=== PATIENT | male | born 1945 | race Caucasian/White ===

== ENCOUNTER 2018-03-15 14:00 | Outpatient (RCR) | payer BC, MEDICARE, SELFPAY ==
--- NOTE | 2018-03-06 14:00 | IE_ITS ---
Date: March 06, 2018 Referring: Messi Valdes MD M.D. Diagnosis: Bilateral LE lymphedema P.T. Diagnosis: Bilateral LE venous insufficiency with R stage II secondary lymphedema SUBJECTIVE: History of Present Illness: Patient is a 72 year old male who reports about 5 years ago he received a stent to his heart. At that time he noticed bilateral ankle swelling which has gotten worse over time. He states he has tried diuretics, but that has not seemed to help reduce his swelling, particularly in his R leg. He reports he has attempted wearing knee high compression stockings to bilateral LE's, but he finds that the elastic band is too tight at the top below the knee, so he does not wear them. He is referred to physical therapy at this time for lymphedema management and education. 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 He feels this prolonged standing increased the swelling in his legs. He shares that he has also had a history of back problems and he has a R hip and shoulder drop due to decreased leg length on the R LE. The patient states that he has been wearing a R foot shoe insert which has evened his leg length and he feels that the combination of standing for many years, combined with his heart problem, combined with back problem and hip pain, contributed to his R LE being worse than the L in terms of swelling, soreness, and tenderness. 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 Patient Goals are to improve LE swelling and decrease soreness, and tenderness in R leg. Pain Ratin/10 bilateral LE's. Prior Level of Function: Prior to 5 years ago he had no difficulty with his LEs. Current Level of Function: Soreness, tenderness through the R LE, occasional tightness wearing his work boots due to swelling in bilateral feet, and toes. Moderate difficulty with squatting, which he has to perform at his work duties, moderate difficulty getting in and out of a vehicle, or sitting more than 1 hour. Difficulty putting socks on secondary to difficulty reaching his feet, the patient is requesting a sock aid for assistance. Previous Treatment: Has not received lymphedema treatment in the past, is being followed by MD regarding cardiac edema and use of diuretics. Social: Lives with his in a house. 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 States he goes up and down ladders, squatting and moving throughout the day doing his work duties. Comorbidities: R shoulder arthroscopy 2005, inguinal hernia repair on L x3, R rotator cuff repair, cardiac stent placement, R ankle repair. 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 Falls in the last year: __X__ No Reported hospitalizations in the last year - __X__ No Medications: Diazepam, Nitro, Furosemide, Metoprolol, Simvastatin, phenytoin sodium extended, vitamin D, aspirin Quality of Life: _ Good Standardized Measures: LEFS score: 49% OBJECTIVE: Posture: Patient states with relatively equal posture wearing good condition work boots with R foot boot insert creating level shoulders, level hips in standing position. Without boots on, the patient was slightly decreased R shoulder and R hip in standing position due to leg difference. Observation: Patient able to don/doff bilateral socks and shoes independently with difficulty reaching feet for donning socks and doffing. The patient would benefit from a sock aide to assist with dressing. Will provide at next session. Skin Integrity: Bilateral LE's skin tone is normal. No signs of redness or hemosiderin staining, no signs of wounds, cellulitis or infection. Patient appears to have a fungal infection to the R great toe nail. States he has received medication for this in the past, but currently is not taking any. He is advised to contact Dr. Valdes for fungal treatment. Dirt between bilateral feet of toes. The patient instructed cleaning between toes and drying sufficiently, as well as performing bilateral foot inspections. Skin care hand out provided for proper skin care for LE's. Gait: Step through gait pattern without assistive device. Normal stride and dianne. Palpation: R LE 1+ pitting edema noted primarily from below the knee to the dorsum of the foot, worse at the ankle. Slightly tender to palpation throughout R LE from knee to ankle. (+) Stemmer sign R second toe, R foot. L LE trace pitting edema below knee to ankle, slight swelling in dorsum of foot. (-) for Stemmer sign L second toe of foot. Edema: Circumferential Measurements: RIGHT LEFT Mid foot 24.5cm 25cm 10cm 28.5cm 26cm 20cm 35 cm 31cm 30cm 39cm 38cm 40cm 41cm 41cm 50cm 45 cm 45cm 60cm 49cm 49cm LE measurements indicate patient is (+) for lymphedema R LE from below the knee to the dorsum of the foot compared to the L due to greater than 2cm difference R vs L. ROM: Bilateral LE AAROM WNL. Some tightness through bilateral hip flexion due to tightness throughout lumbar spine secondary to degenerative changes. Strength: 5/5 throughout bilateral LEs Neuro: Patient is intact to light touch in proprioception throughout bilateral LEs. Motor control and kinesthetic awareness are intact. The patient does not have any neuropathy or other sensory deficits of the feet. Treatment: Initial evaluation and assessment of his functional abilities. IE: [id number] Patient Education: Patient issued lymphedema educational packet, educated in diagnosis of lymphedema. Discussion regarding venous insufficiency vs lymphedema. At this time, the patient appears to have bilateral LE venous insufficiency combined with stage II secondary R LE lymphedema from the knee to the foot. Anatomy hand out, and diagrams were provided. The patient was educated regarding lymphatic flow and function. Discussed with patient treatment for lymphedema and management of lymphedema including Complete Decongestive Therapy (CDT) consisting of 1: Skin care and hygiene: patient has generally good skin care bilateral LE' s. He would benefit from improved cleansing between the toes and treatment for R great toe fungal infection. He will follow up with MD for prescription for fungal treatment. 2: Manual lymphatic drainage. Patient to have come to next session to assist with learning self MLD techniques for bilateral LE edema and R LE lymphedema. 3: Compression. The patient's current compression garments are too tight and do not fit him appropriately. Will obtain prescription from Dr. Valdes for bilateral close toe, knee high compression garment 20-30mmhg. The patient would like [facility] [place], and follow up with [facility] through his insurance for obtaining compression garments. Will send a letter to Dr. Valdes today to obtain prescription. 4: Exercise and elevation. Patient is quite active through his work duties, not concerned with an exercise program for him at this time due to his life style, will issue LE exercise he can perform in sitting and supine focusing on ROM and strengthening to reduce lymphedema. The patient was instructed in elevating LE 30 mins per day. The patient verbalized understanding. Direct treatment time: 60 mins Total treatment time: 60 mins ASSESSMENT: Patient is a 72-year-old male, referred for PT services with the diagnosis of bilateral LE lymphedema. Patient presents with clinical signs and symptoms consistent with venous insufficiency, combined with R LE stage II secondary lymphedema, as demonstrated by the following impairment level findings: Greater than 2cm circumferential measurements R LE knee to foot vs the L. (+) Pitting edema R LE compared to L. (+) edema in bilateral LE's affecting his ability to put on socks and shoes, affecting how his shoes fit causing them to be tight when legs have increased swelling, affecting his ability to perform work duties such as sitting greater than1 hour, getting in and out of a vehicle , squatting, and bending, and prolonged walking. Patient is assessed as: Low 9716 complexity, based on the following: History: See comorbidities and social history. Examination:Bilateral LE's R greater than L See above for functional limitations and impairments. Presentation: Stable Decision-Making: Disability based on LEFS 49% __X__ Patient requires skilled PT intervention to remediate the above functional limitations to return to: __x__ Return to work demands __x__ Improve Quality of Life G-Codes Patient's primary functional limitation is in the category of: __X__ Other Physical/Occupational Therapy primary functional limitation: [id number] Projected goal: __X__ Other Physical/Occupational Therapy primary functional limitation: [id number] KX modifier to be utilized as justified by above documentation for necessity of continued Physical Therapy intervention to attend to functional deficits which have not been fully remediated as they approach their Medicare cap. GOALS STG: __1__ weeks. 1: Patient will be independent with skin care and hygiene for bilateral LE's. 2: Patient independent with elevation of LEs 30 mins a day. 3: Patient independent with issued HEP for LE's. LTG: __3__ weeks. 1: Patient and independent with self manual lymphatic drainage techniques for lymphedema of LE. 2: Patient obtains knee high compression garments of appropriate size pressure of 20-30mmhg and is able to don/doff independently. 3: Patient independent with lymphedema management. PLAN: Patient to be seen 2 x per week, for 3 weeks, adjusting frequency of visits per patient symptoms and response to treatment. Treatment to include: Manual therapy - [id number]: for manual lymphatic drainage of bilateral LE's R greater than L and instruction in self MLD program. Caregiver training of to assist with MLD program. Therapeutic exercise - [id number] bilateral LE to decrease lymphedema. Self care training for education regarding CDT program and lymphedema management. Thank you for this referral. Please do not hesitate to contact me with any questions or concerns regarding this patient's plan of care. Jyotsna Judge PT, CLT *Dr. Valdes, please sign this evaluation and return to physical therapy if you agree with the above stated plan of care. cc: Messi Valdes MD
--- NOTE | 2018-03-11 15:00 | PTTR_ITS ---
DATE: 03/12/18 late entry for 03/11/18 SUBJECTIVE: Pt comes to appointment today stating he has been busy working at [employer] at the [employer] [facility]. States his was supposed to come with him today to this appointment but when he got home she was not there. States he will be sure she can come to Sunday's appointment so she can learn how to assist him with manual lymphatic drainage. Pt reports he has read over Lymphedema education materials and he has no questions at this time. Reported to patient that we have received prescription from MD for bilateral LE closed toe compression garments 20-30mmhg and that the prescription has been faxed to [facility] in [place] per patient's request. Call was placed to [facility] and they confirmed they received the order and supporting paperwork. [place] to contact patient this week to set up a fitting time and and order for compression garments. Pain number: 0/10 OBJECTIVE: Manual therapy: ([id number]): Performed manual lymphatic drainage treatment on patient in the following sequence: bilateral SCF collectors. bilateral axillary nodes, abdominal breathing, bilateral inguinal nodes, followed by bilateral LE's proximal followed by distal drainage through bilateral groins. Issued patient self MLD handout in the above sequence to review. Will instruct patient and in self MLD techniques at next session. Pt was issued a sock aide to assist with donning socks independently. Pt was able to use sock aide to don socks at end of session. Pt independent with donning bilateral boots and tieing laces. Direct treatment time: 30min Total treatment time: 30min Jyotsna Judge PT, CLT
--- NOTE | 2018-03-15 14:30 | PTTR_ITS ---
DATE: 03/15/18 SUBJECTIVE: Patient enters the clinic today with his to receive instruction in manual lymphatic drainage. Patient reports he followed up with [facility] in [place] and has a fitting appointment to order new compression garments next . The patient states he has reviewed his lymphedema information packet, has no questions at this time. Reports the sock aid lawson issued at last session has improved his ability to put on socks independently. * x Self Care Training - ([id number] x2): Patient and instructed in manual lymphatic drainage techniques in the following sequence: * bilateral SCF collectors, bilateral axillary nodes, abdominal breathing, bilateral inguinal nodes, bilateral LE drainage, proximal first followed by distal followed by dorsum of the foot and ankles, draining into groin. The patient was able to perform upper body sequence independently with instruction with hand placement and pressure. was able to perform lower body, LE sequence with instruction in hand placement and pressure. Patient and to perform MLD at home 1x per day progressing to 2x if needed over the next week. The patient will return to clinic next Sunday for remeasurement of LE's. Direct treatment time: 30 mins Total treatment time: 30 mins A: Patient and with good techniques, cooperative and following with instructions. P: Follow up next week for measuring LE and ordering of compression garments through [facility] in [place], [place]. CF/dl
== END 2018-03-15 23:59 | disposition home or self-care (01) ==
LOC: PT 14:00
PROVIDERS: PCP Family Medicine; Referring Provider Family Medicine; Visit Provider Family Medicine
DX: I89.0 Lymphedema, not elsewhere classified (principal); I87.2 Venous insufficiency (chronic) (peripheral)
CPT/HCPCS: 97140; 97161; 97535

== ENCOUNTER 2018-05-24 07:49 | Emergency (ER) | payer BC, MEDICARE, SELFPAY ==
[2018-05-24] VITALS (29 sets, daily range): BP systolic 132–148; BP diastolic 66–80; PULSE 67–92; RESP 10–24; TEMP 36.7; O2SAT 87–96
--- NOTE | 2018-05-24 08:04 | ED.GENADUL_ITS ---
Discharge Plan Disposition Patient Disposition: [facility] Condition: Stable Discharge Details Chief Complaint: Chest Pain Clinical Impression: Bilateral pulmonary embolism, Hypoxia Primary Care Provider: Messi Valdes ED Provider: Srinivas Mcgarry Home Meds and New Rx's Prescriptions: No Action furosemide 40 mg tablet 40 mg PO DAILY RF: 0 phenytoin sodium extended 100 MG capsule 5 cap PO DAILY Qty: 450 RF: 4 simvastatin 40 MG tablet 40 mg PO DAILY Qty: 90 RF: 4 Metoprolol Succinate 25 MG TAB.ER.24H 25 mg PO DAILY Qty: 90 RF: 4 nitroglycerin 0.4 MG tablet, sublingual 0.4 mg Sublingual As directed MDD 3 tabs PRNQty: 50 RF: 4 aspirin 325 MG tablet 162 mg PO DAILY RF: 0 cholecalciferol (vitamin D3) 1,000 UNITS tablet 1,000 units PO DAILY RF: 0 Medical Decision Making Pt comes in with cough for a few days and for a day has had left sided chest pain especially with coughing. Is noted to be hypoxic to the high 80's on exam. Denies any radiation of pain or pain with exertion and doesn't sound typical of acs but agapito eval with ecg and troponin. Will eval for PE/dissection and PNA with CTA pt has remained stable, lab work unremarkable. HAs bilateral PE's, no saddle embolism or right heart strain per Dr. contreras on ct. No hypotension. No beds here , spoke with Dr. Natarajan from [facility] who accepts in transfer. Differential Diagnosis pe, pna, dissection, acs Imaging Data Radiologic Study: Attestation: I personally reviewed and interpreted this imaging study as follows: Radiologist's impression: bilateral PE Lab Data Lab results reviewed: Yes I reviewed the patient's lab results. ECG Data Attestation: I personally reviewed and interpreted this ECG (s) as follows: Prior ECG tracings: not available for review Interpretation: sinus rhythm, rate of 92, pr 152, no significant st t wave abnormalities HPI General Mode of arrival: ambulatory . Date/Time Provider Initiated Documentation: 05/24/18 07:54 . Limitations to Documentation: no limitations . Information obtained by: patient . History of Present Illness 72 year old M presents to the emergency department with the chief complaint of left sided chest pain , described as moderate, with intensity rated at 5. Quality is described as sharp, and is localized to the chest. Patient reports no radiation. Patient started experiencing this day(s) (1) and it has been constant. No relieving factors improve symptom(s), No exacerbating factors reported . Patient notes cough. Patient did receive the following treatments prior to arrival, none Related Data Home Medications Medication Instructions Recorded Confirmed aspirin 162 mg PO DAILY 10/11/12 05/24/18 cholecalciferol (vitamin D3) 1,000 units PO DAILY 10/11/12 05/24/18 phenytoin sodium extended 5 cap PO DAILY #450 tab-cap 06/08/17 05/24/18 simvastatin 40 mg PO DAILY #90 tab-cap 06/08/17 05/24/18 nitroglycerin 0.4 mg SUBLINGUAL As directed PRN 01/31/18 05/24/18 #50 tab MDD 3 tabs furosemide 40 mg tablet 40 mg PO DAILY tab-cap 04/02/18 05/24/18 Previous Rx's Medication Instructions Recorded phenytoin sodium extended 5 cap PO DAILY #450 tab-cap 06/08/17 simvastatin 40 mg PO DAILY #90 tab-cap 06/08/17 Allergies Allergy/AdvReac Type Severity Reaction Status Date / Time amoxicillin Allergy Unknown Unverified 05/24/18 08:09 Sulfa (Sulfonamide Allergy Unknown Unverified 05/24/18 08:09 Antibiotics) General Stated Complaint: Chest Pain JERRICA: 2 Review of Systems Review of Systems All systems reviewed & are unremarkable except as noted in HPI and below Constitutional Denies chills, Denies fever(s) and Denies weakness Eyes Denies loss of vision ENT Denies change in voice Gastrointestinal Denies abdominal pain, Denies nausea and Denies vomiting Genitourinary Denies dysuria Musculoskeletal Denies joint swelling Integumentary/Breasts Denies rash Neurologic Denies loss of vision and Denies weakness Psychiatric Denies depression Endocrine Denies cold intolerance and Denies heat intolerance [facility] Family History Mother Heart disease Father Personal history of malignant neoplasm Heart disease Sister Heart disease Brother No problems noted. Grandfather No problems noted. Grandfather No problems noted. Grandmother No problems noted. Grandmother No problems noted. Medical History Hyperlipidemia Hypertension Seizures Social History current occupational status: employed current occupation: [employer] frequency: daily duration: 30-45 minutes/day Smoking/Tobacco Use Status: Former Tobacco Use second hand exposure: No Surgical History Arthroscopy, Shoulder (~2005) Repair of inguinal hernia Rotator Cuff Repair Stent placement ankle repair Exam Const General: no acute distress Orientation: alert HENMT Head: normal to inspection Ears: external ears normal General nose exam: external nose normal Mouth: moist mucous membranes Eyes General: appearance normal, both eyes and all related structures Neck Neck: normal visual inspection Resp Effort & Inspection: normal respiratory effort and able to speak in complete sentences Cardio Rate: regular rate Skin General skin exam: no rashes or lesions noted Neuro General: alert and oriented x3 Extrem General: normal to inspection Psych Mental Status: mental status grossly normal Course Vital Signs Temperature 36.7 C 05/24/18 07:58 Pulse 91 H 05/24/18 07:58 Respiratory Rate 24 05/24/18 07:58 Blood Pressure 148/73 H 05/24/18 07:58 Pulse Oximetry 88 L 05/24/18 07:58 Temperature 36.7 C 05/24/18 07:58 Temperature Source Temporal Artery Scan 05/24/18 07:58 Pulse 91 H 05/24/18 07:58 Respiratory Rate 24 05/24/18 07:58 Respiratory Effort 05/24/18 08:02 Blood Pressure 148/73 H 05/24/18 07:58 Blood Pressure Position Supine 05/24/18 07:58 Pulse Oximetry 88 L 05/24/18 07:58 Oxygen Delivery Method Room Air 05/24/18 07:58 Oxygen Flow Rate 0 05/24/18 07:58 Pain Level 9 05/24/18 07:58
[2018-05-24] MEDS: Aspirin 81 MG CHEW 324 MG CH (08:08)
[2018-05-24 08:17] LABS: Abs Immature Grans 0.03 k/cumm (0.0-0.09); Absolute Basophil Count 0.05 k/cumm (0.0-0.2); Absolute Eosinophil Count 0.23 k/cumm (0.0-0.7); Absolute Lymphocyte Count 1.25 k/cumm (1.2-3.4); Absolute Neutrophil Count 6.77 k/cumm (1.2-6.7); Basophils % 0.6; Eosinophils % 2.5; HGB 13.8 g/dL (13.5-17.5); Immature Grans % 0.3; Lymphocytes % 13.8; Mean Corp. HGB Concentration 33.7 g/dL (32.0-36.0); Mean Corpuscular Hemoglobin 30.3 pg (27.0-33.0); Mean Corpuscular Volume 89.9 fL (80-95); Mean Platelet Volume 10.2 fL (8.0-11.0); Monocytes % 7.8; Platelet Count 219 x1000/uL (130-400); RBC 4.56 m/cumm (4.50-6.00); RBC Distribution Width 13.6 % (11.8-14.1); White Blood Cell Count 9.03 k/cumm (4.4-10.8)
[2018-05-24 08:30] LABS: INR 1.1 (1.0-3.5); PTT Activated 22.2 sec (21.0-31.4); Prothrombin Time 10.4 sec (9.3-10.8)
--- NOTE | 2018-05-24 08:30 | DI.CT_ITS ---
SYMPTOMS/DIAGNOSIS: LEFT-SIDED CHEST PAIN, HYPOXIA CT SCAN OF THE CHEST: CT scan of the chest was performed according to the pulmonary embolus protocol. There are multiple pulmonary emboli present. They involve pulmonary artery branches to all lobes of the lung. There is no evidence of a saddle embolus in the main pulmonary arteries. The heart size is within normal limits. No findings to suggest right ventricular dysfunction are seen. No significant pericardial effusion is seen. The thoracic aorta is of normal caliber. No aneurysmal dilatation or dissection is present. There are dependent atelectatic changes in the lungs. No focal consolidating infiltrates, effusions or pneumothoraces are identified. The tracheobronchial tree is unremarkable. Upper abdominal images show tiny hypodensities within the liver. They are too small for further characterization, but have been present on the prior examination from 04/23/10. Degenerative changes are seen in the spine. IMPRESSION: Bilateral pulmonary emboli. No findings to suggest right ventricular dysfunction. The findings were discussed with Dr. Mcgarry of the Emergency Department on the date of the examination.
[2018-05-24 08:33] LABS: ALT 25 U/L (12-78); AST 19 U/L (15-37); Albumin 3.5 g/dL (3.4-5.0); Alkaline Phosphatase 189 U/L (46-116); Anion Gap 10.5 mmol/L (3-11); BUN 18 mg/dL (7-18); Bilirubin, Direct 0.08 mg/dL (0.00-0.20); Bilirubin, Total 0.3 mg/dL (0.2-1.0); CO2 26.5 mmol/L (21.0-32.0); CREATININE 0.89 mg/dL (0.70-1.30); Calcium 8.4 mg/dL (8.5-10.1); Chloride 102 mmol/L (98-107); Glucose 129 mg/dL (70-100); Lipase 95 U/L (73-393); Potassium 3.8 mmol/L (3.5-5.1); Sodium 139 mmol/L (136-145); Total Protein 6.8 g/dL (6.4-8.2)
[2018-05-24 08:34] LABS: Troponin I < 0.02 ng/mL (0.00-0.06)
[2018-05-24 08:36] LABS: Magnesium 1.9 mg/dL (1.8-2.4); NT-proBNP 107 pg/mL
[2018-05-24] MEDS: Omnipaque 350 MG/ML 100 ML BTL IJ (08:46)
--- NOTE | 2018-05-24 08:55 | DI.US_ITS ---
SYMPTOM/DIAGNOSIS: PE, BILAT CALF SWELLING BILATERAL LOWER EXTREMITY ULTRASOUND: The deep veins of the left lower extremity show normal compression, augmentation and color flow. No evidence of a deep venous thrombus is seen. The visualized portions of the greater saphenous vein on the left are patent. In the right lower extremity, hypoechoic thrombus is seen in the distal femoral vein extending into the popliteal vein. There is also seen thrombus in the mid portion of a duplicate right femoral vein. The greater saphenous vein on the right appears unremarkable. IMPRESSION: Findings consistent with a deep venous thrombus extending from the right femoral vein distally into the popliteal vein. The findings were discussed with the ER on the date of the examination.
== END 2018-05-24 11:14 | disposition short-term general hospital (02) ==
LOC: ER 10:58
PROVIDERS: Emergency Provider Emergency Medicine; PCP Family Medicine
DX: I26.99 Other pulmonary embolism without acute cor pulmonale (principal); R07.9 Chest pain, unspecified; R09.02 Hypoxemia; I25.10 Atherosclerotic heart disease of native coronary artery without angina pectoris; Z95.5 Presence of coronary angioplasty implant and graft; I10 Essential (primary) hypertension
CPT/HCPCS: 36415; 71275; 80053; 80076; 83690; 93005; 96372; 99285; 83735; 83880; 84484; 85025; 85610; 85730; 93010; 93970; J1650; J3490

== ENCOUNTER 2018-06-11 12:14 | Outpatient (REF) | payer BC, MEDICARE, SELFPAY | END 2018-06-11 12:34 | LOC: LBN 12:14 | PROVIDERS: PCP Family Medicine; Visit Provider Family Medicine | DX: B35.1 Tinea unguium (principal) | CPT/HCPCS: 87102; 87107 ==

== ENCOUNTER 2019-05-04 22:05 | Emergency (ER) | payer BC, MEDICARE, SELFPAY ==
[2019-05-04 22:10] VITALS: BP 152/81; PULSE 76; RESP 18; TEMP 36.5; O2SAT 98
--- NOTE | 2019-05-04 22:24 | DI.RAD_ITS ---
EXAM: XR SHOULDER LT COMPLETE 2+V INDICATION: left shoulder pain. COMPARISON: No exams were available for comparison TECHNIQUE: 2D digital imaging was performed. FINDINGS: There is mild DJD involving the left shoulder. No fracture or subluxation is seen. The soft tissues a re unremarkable. IMPRESSION: No acute abnormality is demonstrated. There are mild degenerative changes.
--- NOTE | 2019-05-04 22:25 | DI.RAD_ITS ---
EXAM: XR CHEST 2V PA LATERAL INDICATION: left shoulder pain. COMPARISON: CHEST 2 VIEWS PA,LAT from 09/05/2012 TECHNIQUE: 2D digital imaging was performed. FINDINGS: The lungs are well expanded and free of infiltrate. There is no pleural effusion or pneumothorax. The cardiovascular structures are intact. IMPRESSION: No evidence of acute cardiopulmonary disease.
--- NOTE | 2019-05-04 22:39 | ED.GENADUL_ITS ---
Discharge Plan Disposition Patient Disposition: HOME Condition: Good Discharge Details Chief Complaint: Orthopedic Clinical Impression: Left shoulder pain Primary Care Provider: Messi Valdes ED Provider: Peng Fitzgerald Home Meds and New Rx's Prescriptions: New cyclobenzaprine 10 mg tablet 10 mg PO TID Qty: 14 RF: 0 lidocaine [Lidoderm] 1 PATCH patch 1 patch Topical Q24H Qty: 4 RF: 0 diclofenac sodium [Voltaren] 1 % gel 2 gm TP QID Qty: 100 RF: 0 No Action edoxaban 60 mg tablet 60 mg PO DAILY Qty: 90 RF: 3 furosemide 40 mg tablet 40 mg PO DAILY RF: 0 phenytoin sodium extended 100 mg capsule 500 mg PO DAILY Qty: 450 RF: 4 simvastatin 40 mg tablet 40 mg PO DAILY Qty: 90 RF: 4 nitroglycerin 0.4 MG tablet, sublingual 0.4 mg Sublingual As directed MDD 3 tabs PRNQty: 50 RF: 4 metoprolol succinate 25 mg tablet extended release 24 hr 25 mg PO DAILY Qty: 90 RF: 4 cholecalciferol (vitamin D3) 1,000 UNITS tablet 1,000 units PO DAILY RF: 0 acetaminophen 500 mg Tablet 500 mg PO PRN PRNRF: 0 Discharge Instructions Instructions: Shoulder Pain (ED) Additional Instructions: X-ray results show no evidence of significant fracture but do show evidence of mild to moderate arthritis. Please continue to take the Lidoderm patch and the Flexeril as needed for pain control. When you are taking the Flexeril do not take it while operating heavy machinery, operating firearms, climbing ladders, or driving. As it can make you slightly sleepy. Please use the Voltaren gel on your left shoulder as needed for pain. Small amounts are recommended. We will schedule an orthopedic follow-up for you. Please rest her shoulder as much as possible and avoid significant heavy use. If you notice any worsening of your symptoms, or any new symptoms such as vomiting, diarrhea, fever, chills, shortness of breath, chest pain, numbness, weakness, or fainting , please return immediately to the emergency department for reevaluation. Please follow up with your primary care provider as soon as possible for reassessment and reevaluation. As always, it was a pleasure participating in your medical care today. Referrals: Messi Valdes MD [Primary Care Provider] - Medical Decision Making This is a pleasant 73-year-old male who presents today for evaluation of left shoulder pain. Pain is been present for the last year, but notably worsened over the last few days. Worsened with movement, not improved by Tylenol. He has history of PEs, on a blood thinner, previous cardiac stents. He states that his symptoms are inconsistent and not in any way similar to his previous blood clot symptoms or heart attack symptoms. Physical exam demonstrates notable decrease in range of motion, significant stiffness, significant left sided trapezius spasm. Normal neurovascular exam, no evidence of pulse discrepancy. Signs and symptoms inconsistent with dissection, or subclavian steal syndrome. Or coarctation. Additionally symptoms are inconsistent with ACS. Screening EKG unremarkable. 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 Double crush syndrome and thoracic outlet syndrome or ulcer on the differential. We will get x-rays to evaluate for any acute osseous pathology. We will give Lidoderm patch, Flexeril, recommend outpatient orthopedic follow-up. 11:42 PM EKG is unremarkable, x-rays demonstrate no evidence of acute process. There is degenerative changes in the shoulder but no evidence of acute fracture or other significant abnormality. Patient does feel notably improved with Lidoderm patch and Flexeril. I suspect the patient's symptoms are related to his arthritis, and potential mild impingement syndrome. With signs and symptoms and consistent with septic joint, ACS, or acute life-threatening abnormality at this time, and with notably unremarkable vital signs, I feel he can be safely discharged home with close follow-up on an outpatient basis. We will place an orthopedic referral for further assessment. We will give Flexeril, topical NSAID as this will not interact as much with his blood thinner, recommend rest. I have extensively reviewed the treatment plan and discharge instructions with the patient and their family. I have addressed all patient concerns at this time. The patient and family was made aware of what symptoms to monitor for that would warrant a return to the emergency department. Discussed the plan with the patient and family, they demonstrate verbal understanding and agreement with our assessment and plan at this time. FINDINGS: Bones/joints: No fracture or subluxation. Degenerative changes of acromioclavicular joint. Soft tissues: Normal. IMPRESSION: 1. No fracture or subluxation. 2. Degenerative changes. Thank you for allowing us to participate in the care of your patient. Dictated and Authenticated by: Fabricio Islas DO FINDINGS: Lungs: Unremarkable. No consolidation. Pleural space: Unremarkable. No pleural effusion. No pneumothorax. Heart/Mediastinum: Unremarkable. No cardiomegaly. Bones/joints: Degenerative changes of the spine. Prior right shoulder surgery. IMPRESSION: No acute cardiopulmonary findings. Thank you for allowing us to participate in the care of your patient. Dictated and Authenticated by: Fabricio Islas DO 05/04/2019 11:39 PM Eastern Time ([place] & [place]) EKG 22: 30 Rate 74, intervals normal, sinus rhythm, no significant ST elevation or depression, no evidence of ACS or STEMI. Q waves noted in lead III and aVF. Review of prior EKG from 05/24/2018 demonstrates no significant acute changes. HPI General Date/Time Provider Initiated Documentation: 05/04/19 22:07 . HPI Narrative: This is a 73-year-old male with a past medical history of PEs, on edoxaban, high cholesterol, hypertension, previous cardiac stent, who presents today for evaluation of shoulder pain. Patient states that he has had shoulder pain for the past year or 2, however over the last for 5 days it is notably been worsened. He describes it as an achy sensation in his left shoulder, worse with movement. Over the last 2 to 3 days it is caused associated cramping down his left arm, in conjunction with intermittent tingling in his hand. It is notably worsened with use and movement, not improved by Tylenol. He did see his chiropractor but this did not help his symptoms. He denies any trauma, but does state that he is been a very physical person his entire life and often uses his shoulders hard. He has had previous surgery on his right shoulder. He states that the symptoms are notably inconsistent when he had his cardiac stents. Patient denies any exertional component associated with his symptomatology. It is only worsened with focal use of the shoulder. He denies any shortness of breath, chest heaviness, chest tightness, nausea, vomiting, diarrhea. He denies any other complaints at this time. No other modifying factors. Related Data Home Medications Medication Instructions Recorded Confirmed cholecalciferol (vitamin D3) 1,000 units PO DAILY 10/11/12 02/05/19 nitroglycerin 0.4 mg SUBLINGUAL As directed PRN 01/31/18 02/05/19 #50 tab MDD 3 tabs furosemide 40 mg tablet 40 mg PO DAILY tab-cap 04/02/18 02/05/19 edoxaban 60 mg tablet 60 mg PO DAILY #90 tab 05/28/18 02/05/19 phenytoin sodium extended 100 mg 500 mg PO DAILY #450 tab-cap 06/11/18 02/05/19 capsule simvastatin 40 mg tablet 40 mg PO DAILY #90 tab-cap 06/11/18 02/05/19 metoprolol succinate 25 mg 25 mg PO DAILY #90 tab 08/09/18 02/05/19 tablet,extended release 24 hr acetaminophen 500 mg PO PRN PRN 05/04/19 05/04/19 cyclobenzaprine 10 mg PO TID #14 tab 05/04/19 diclofenac sodium [Voltaren] 2 gm TP QID #100 gm 05/04/19 lidocaine [Lidoderm] 1 patch TOPICAL Q24H #4 patch 05/04/19 Previous Rx's Medication Instructions Recorded edoxaban 60 mg tablet 60 mg PO DAILY #90 tab 05/28/18 phenytoin sodium extended 100 mg 500 mg PO DAILY #450 tab-cap 06/11/18 capsule simvastatin 40 mg tablet 40 mg PO DAILY #90 tab-cap 06/11/18 metoprolol succinate 25 mg 25 mg PO DAILY #90 tab 08/09/18 tablet,extended release 24 hr cyclobenzaprine 10 mg PO TID #14 tab 05/04/19 diclofenac sodium [Voltaren] 2 gm TP QID #100 gm 05/04/19 lidocaine [Lidoderm] 1 patch TOPICAL Q24H #4 patch 05/04/19 Allergies Allergy/AdvReac Type Severity Reaction Status Date / Time amoxicillin Allergy Unknown Unverified 05/04/19 22:13 Sulfa (Sulfonamide Allergy Unknown Unverified 05/04/19 22:13 Antibiotics) General Stated Complaint: Orthopedic JERRICA: 3 Review of Systems Review of Systems ROS Unobtainable: All systems reviewed & are unremarkable except as noted in HPI and below PFSH Medical History (Updated 02/05/19 @ 10:51 by Mitch Willard) Hyperlipidemia Hypertension Seizures Onset in his late 20's, no seizures for 30 years Social History (Updated 06/12/18 @ 09:27 by Sujata Gallegos) Smoking/Tobacco Use Status: Never Second Hand Exposure: Yes Alcohol Intake: current Alcohol Intake frequency: holidays/special occasions only Alcohol type: beer and hard liquor Drug use: Never Substance use type: does not use 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 3.ENT: Atraumatic external nose and ears. Moist MM. Neck: Symmetric, trachea midline, No thyromegaly. 4.CVS: +S1/S2, No murmurs or gallops. Peripheral pulses 2+ and equal in all extremities. Brisk capillary refill in all extremities. 5.RESP: Unlabored respiratory effort. Clear to auscultation bilaterally. No wheezes rales or rhonchi 6.GI: Soft, Nontender/Nondistended, No hepatosplenomegaly. No guarding or rebound. 7.MSK: Normocephalic/Atraumatic, Extremities w/o deformity or significant Ttp No cyanosis or clubbing. Evaluation of left shoulder demonstrates notable spasm of the left trapezius. No focal tenderness on palpation of the shoulder except for minimal tenderness on palpation of the humeral head. Pain is notably worsened with abduction, external rotation, and posterior movement. Range of motion is limited in comparison to the right. Normal strength otherwise though, strength is present and symmetric for the arm, elbow, forearm hand and wrist. Radial pulse +2 bilaterally, brisk capillary refill. Patient demonstrates good dexterity of the hand, normal sensation, including normal two-point discrimination in all fingers with no evidence of focal neurologic deficit. No chest wall tenderness. No asymmetric pulses. Left shoulder itself demonstrates no evidence of warmth, redness, significant swelling. No clinical evidence of infectious etiology. 8.Skin: Warm, Dry. No rashes or lesions. 9.Neuro: ground operations supervisor II-XII grossly intact. Sensation grossly intact, no focal neurologic deficits. Please see musculoskeletal. 10.Psych: (AAO) x3. Appropriate mood and affect Course Vital Signs Vital signs: Vital Signs Temperature 36.5 C 05/04/19 22:10 Pulse 76 05/04/19 22:10 Respiratory Rate 18 05/04/19 22:10 Blood Pressure 152/81 H 05/04/19 22:10 Pulse Oximetry 98 05/04/19 22:10 Temperature 36.5 C 05/04/19 22:10 Temperature Source Temporal Artery Scan 05/04/19 22:10 Pulse 76 05/04/19 22:10 Respiratory Rate 18 05/04/19 22:10 Blood Pressure 152/81 H 05/04/19 22:10 Pulse Oximetry 98 05/04/19 22:10 Oxygen Delivery Method Room Air 05/04/19 22:10 Oxygen Flow Rate 0 05/04/19 22:10 Pain Level 10 05/04/19 22:10
[2019-05-04] MEDS: Cyclobenzaprine 10 MG TAB PO (22:59)
[2019-05-04] MEDS: Lidocaine 5% Patch 1 PATCH TP (22:59)
--- NOTE | 2019-05-04 23:38 | DI.VRAD_ITS ---
PROCEDURE INFORMATION: Exam: XR Left Shoulder Exam date and time: 05/04/2019 10:58 PM Clinical history: 73 years old, male; Other: Lt shoulder pain TECHNIQUE: Imaging protocol: XR Left shoulder. Views: 2 or more views. COMPARISON: No relevant prior studies available. FINDINGS: Bones/joints: No fracture or subluxation. Degenerative changes of acromioclavicular joint. Soft tissues: Normal. IMPRESSION: 1. No fracture or subluxation. 2. Degenerative changes. Dictated and Authenticated by: Fabricio Islas MD. Ordering:MIKIE Khoury MD
--- NOTE | 2019-05-04 23:39 | DI.VRAD_ITS ---
PROCEDURE INFORMATION: Exam: XR Chest, 2 Views Exam date and time: 05/04/2019 10:58 PM Clinical history: 73 years old, male; Other: Lt shold pain TECHNIQUE: Imaging protocol: XR of the chest Views: 2 views. COMPARISON: CR CHEST 2 VIEWS PA,LAT 09/05/2012 10:12 PM FINDINGS: Lungs: Unremarkable. No consolidation. Pleural space: Unremarkable. No pleural effusion. No pneumothorax. Heart/Mediastinum: Unremarkable. No cardiomegaly. Bones/joints: Degenerative changes of the spine. Prior right shoulder surgery. IMPRESSION: No acute cardiopulmonary findings. Dictated and Authenticated by: Fabricio Islas MD. Ordering:MIKIE Khoury MD
== END 2019-05-04 23:55 | disposition home or self-care (01) ==
PROVIDERS: Emergency Provider Student in an Organized Health Care Education/Training Program; PCP Family Medicine
DX: M25.512 Pain in left shoulder (principal); R20.2 Paresthesia of skin; M19.012 Primary osteoarthritis, left shoulder; I10 Essential (primary) hypertension; Z79.01 Long term (current) use of anticoagulants; Z95.5 Presence of coronary angioplasty implant and graft
CPT/HCPCS: 93005; 99284; 71046; 73030; 93010

== ENCOUNTER 2020-01-31 00:18 | Emergency (ER) | payer BC, MEDICARE, SELFPAY ==
[2020-01-31 00:21] VITALS: BP 171/78; PULSE 84; RESP 18; TEMP 36.6; O2SAT 96
--- NOTE | 2020-01-31 00:21 | W.ED.GENAD ---
Discharge Plan Disposition Patient Disposition: HOME Condition: Good Discharge Details Chief Complaint: GenMedical Clinical Impression: Medication administered Primary Care Provider: Messi Valdes ED Provider: Sebastian Marquez Home Meds and New Rx's Prescriptions: Continued phenytoin sodium extended 100 mg capsule 500 mg PO DAILY Qty: 450 RF: 4 simvastatin 40 mg tablet 40 mg PO DAILY Qty: 90 RF: 4 furosemide 40 mg tablet 40 mg PO DAILY Qty: 90 RF: 4 nitroglycerin 0.4 MG tablet, sublingual 0.4 mg Sublingual As directed MDD 3 tabs PRNQty: 50 RF: 4 edoxaban 60 mg tablet 60 mg PO DAILY Qty: 90 RF: 3 metoprolol succinate 25 mg tablet extended release 24 hr 25 mg PO DAILY Qty: 90 RF: 4 cholecalciferol (vitamin D3) 1,000 UNITS tablet 1,000 units PO DAILY RF: 0 acetaminophen 500 mg Tablet 500 mg PO PRN PRNRF: 0 lidocaine [Lidoderm] 1 PATCH patch 1 patch Topical Q24H Qty: 4 RF: 0 Discharge Instructions Additional Instructions: Be sure to telephone instrument supervisor your prescription today. Follow-up with primary care as needed. Return to ED if problems. Referrals: Messi Valdes MD [Primary Care Provider] - Medical Decision Making Patient will be provided the extra 400 mg of phenytoin ER so that he may take his full 500 mg dose. He will telephone instrument supervisor this prescription at the pharmacy today. HPI General Mode of arrival: ambulatory. Date/Time Provider Initiated Documentation: 01/31/20 00:20. Limitations to Documentation: no limitations. Information obtained by: patient and RN notes reviewed. HPI Narrative: Patient here because he needs his phenytoin dosing for tonight. His picked up 1 of his prescriptions at the pharmacy today but the phenytoin was not ready. He only has 100 mg of the 500 mg dose that he is supposed to take. He has not had seizures in a long time and did not want to miss his dose tonight. He has no other complaints or problems. Related Data Home Medications Medication Instructions Recorded Confirmed cholecalciferol (vitamin D3) 1,000 units PO DAILY 10/11/12 01/31/20 nitroglycerin 0.4 mg SUBLINGUAL As directed PRN 01/31/18 01/31/20 #50 tab MDD 3 tabs acetaminophen 500 mg PO PRN PRN 05/04/19 01/31/20 lidocaine [Lidoderm] 1 patch TOPICAL Q24H #4 patch 05/04/19 01/31/20 edoxaban 60 mg tablet 60 mg PO DAILY #90 tab 05/27/19 01/31/20 furosemide 40 mg tablet 40 mg PO DAILY #90 tab-cap 06/13/19 01/31/20 phenytoin sodium extended 100 mg 500 mg PO DAILY #450 tab-cap 06/13/19 01/31/20 capsule simvastatin 40 mg tablet 40 mg PO DAILY #90 tab-cap 06/13/19 01/31/20 metoprolol succinate 25 mg 25 mg PO DAILY #90 tab 08/26/19 01/31/20 tablet,extended release 24 hr Previous Rx's Medication Instructions Recorded lidocaine [Lidoderm] 1 patch TOPICAL Q24H #4 patch 05/04/19 edoxaban 60 mg tablet 60 mg PO DAILY #90 tab 05/27/19 furosemide 40 mg tablet 40 mg PO DAILY #90 tab-cap 06/13/19 phenytoin sodium extended 100 mg 500 mg PO DAILY #450 tab-cap 06/13/19 capsule simvastatin 40 mg tablet 40 mg PO DAILY #90 tab-cap 06/13/19 metoprolol succinate 25 mg 25 mg PO DAILY #90 tab 08/26/19 tablet,extended release 24 hr Allergies Allergy/AdvReac Type Severity Reaction Status Date / Time amoxicillin Allergy Unknown Verified 01/31/20 00:26 Sulfa (Sulfonamide Allergy Unknown Verified 01/31/20 00:26 Antibiotics) General JERRICA: 3 Review of Systems Constitutional Constitutional: Denies fever(s) Cardiovascular Cardiovascular: Denies dyspnea Respiratory Respiratory: Denies cough and Denies dyspnea [facility] Medical History Hyperlipidemia Hypertension Seizures Onset in his late 20's, no seizures for 30 years Surgical History ankle repair Arthroscopy, Shoulder (~2005) 1 vascular Repair of inguinal hernia left x 3 Rotator Cuff Repair Stent placement Family History (Updated 06/16/19 @ 10:34 by Uche Resendez) Mother , AGE 60 Heart disease Father , age 82 Heart disease Colon cancer Sister , AGE 60 Heart disease Sister No problems noted. Sister No problems noted. Brother , AGE 42 No problems noted. Brother No problems noted. Son No problems noted. Daughter No problems noted. Daughter No problems noted. Maternal Grandfather No problems noted. Paternal Grandfather No problems noted. Maternal Grandmother No problems noted. Paternal Grandmother No problems noted. 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 Pets and animals: Yes Pets and animals: dog(s) Sexually active: Yes Do you think of yourself as: straight/heterosexual Current gender identity: male What is your relationship status?: How often do you talk on the phone with friends or family?: once per week How often do you get together with friends or relatives?: three or more times per week How often do you attend lutheran or restoration services?: decline to answer Do you belong to any clubs or organized social groups?: no Panel score (0-1 are the most socially isolated patients): 2 What type of physical activity do you participate in: other Details: work Frequency: 5-6 times per week Bruna/Taoist: Mandaen Special bruna needs: No Seatbelt use: always Helmet use: No Drive intox or ride w/intox package delivery driver: No Do you feel safe at home: Yes Do you feel safe in your relationship?: Yes Exam Const General: cooperative, comfortable and no acute distress Orientation: alert and oriented x3 Resp Effort & Inspection: normal respiratory effort Neuro General: patient alert, patient oriented x3, gait normal and no focal motor deficits
[2020-01-31 00:24] VITALS: RESP 18
== END 2020-01-31 00:40 | disposition home or self-care (01) ==
LOC: ER 01:00
PROVIDERS: Emergency Provider Emergency Medicine; PCP Family Medicine
DX: G40.909 Epilepsy, unspecified, not intractable, without status epilepticus (principal); I10 Essential (primary) hypertension
CPT/HCPCS: 99282

== ENCOUNTER 2020-02-06 01:47 | Outpatient (CLI) | payer BC, MEDICARE, SELFPAY ==
[2020-02-06 08:52] LABS: HCT 40.2 % (40.0-50.0); HGB 13.8 g/dL (13.5-17.5); Mean Corp. HGB Concentration 34.3 g/dL (32.0-36.0); Mean Corpuscular Hemoglobin 31.1 pg (27.0-33.0); Mean Corpuscular Volume 90.5 fL (80-95); Mean Platelet Volume 9.9 fL (8.0-11.0); Platelet Count 194 x1000/uL (130-400); RBC 4.44 m/cumm (4.50-6.00); RBC Distribution Width 12.7 % (11.8-14.1); White Blood Cell Count 4.61 k/cumm (4.4-10.8)
[2020-02-06 09:29] LABS: Anion Gap 10.8 mmol/L (3-11); BUN 23 mg/dL (7-18); CO2 24.2 mmol/L (21.0-32.0); CREATININE 0.84 mg/dL (0.70-1.30); Calcium 8.5 mg/dL (8.5-10.1); Chloride 107 mmol/L (98-107); Glucose 101 mg/dL (74-106); Potassium 4.2 mmol/L (3.5-5.1); Sodium 142 mmol/L (136-145)
== END 2020-02-06 02:07 ==
PROVIDERS: PCP Family Medicine; Visit Provider Family Medicine
DX: I25.10 Atherosclerotic heart disease of native coronary artery without angina pectoris (principal); Z51.81 Encounter for therapeutic drug level monitoring; Z79.899 Other long term (current) drug therapy
CPT/HCPCS: 36415; 80048; 85027

== ENCOUNTER 2020-08-07 18:14 | Emergency (ER) | payer BC, MEDICARE, SELFPAY ==
[2020-08-07] VITALS (30 sets, daily range): BP systolic 129–157; BP diastolic 63–80; PULSE 63–83; RESP 13–34; TEMP 36.5; O2SAT 91–97
--- NOTE | 2020-08-07 18:00 | RT.EKG_ITS ---
APPROVED REPORT Exam: Resting ECG Patient Location: E HR:80 bpm ECG Measurements Heart Rate 80 AXIS IA 185 P 57 QRSd 99 QRS 64 QT 370 T 60 QTc 429 Conclusion Sinus rhythm...normal P axis, V-rate 60- [address] elevation
[2020-08-07] MEDS: Simethicone 80 MG CHEW 320 MG PO (18:38)
--- NOTE | 2020-08-07 18:40 | W.ED.GENAD ---
Discharge Plan Disposition Patient Disposition: HOME Condition: Good Discharge Details Clinical Impression: Dysphagia Primary Care Provider: Bob Johnson ED Provider: Sebastian Marquez [place] Meds and New Rx's Prescriptions: No Action nitroglycerin 0.4 MG tablet, sublingual 0.4 mg Sublingual As directed MDD 3 tabs PRNQty: 50 RF: 4 metoprolol succinate 25 mg tablet extended release 24 hr 25 mg PO DAILY Qty: 90 RF: 4 edoxaban 60 mg tablet 60 mg PO DAILY Qty: 90 RF: 3 phenytoin sodium extended 100 mg capsule 500 mg PO DAILY Qty: 450 RF: 4 furosemide 40 mg tablet 40 mg PO DAILY Qty: 90 RF: 4 simvastatin 40 mg tablet 40 mg PO DAILY Qty: 90 RF: 4 cholecalciferol (vitamin D3) 1,000 UNITS tablet 1,000 units PO DAILY RF: 0 acetaminophen 500 mg Tablet 500 mg PO PRN PRNRF: 0 lidocaine [Lidoderm] 1 PATCH patch 1 patch Topical Q24H Qty: 4 RF: 0 Discharge Instructions Additional Instructions: Please follow-up with your primary care physician Only has a small amount of food at a time as your symptoms may return Should this develop again, you could try taking simethicone and see if it helps upi symptoms and return to the emergency room should your symptoms persist Stay away from spicy food, acidic food, and large pieces of meat You may need an outpatient endoscopy, please talk to your doctor on Sunday Recheck with your doctor on Sunday and return earlier should he have new or worsening complaints Referrals: Bob Johnson [Primary Care Provider] - Discharge Data Discharge Date/Time-TO BE ENTERED AT DEPARTURE: 08/07/20 22:00 Medical Decision Making <KUNAL Orourke - Last Filed: 08/09/20 12:29> Patient does have significant cardiac history, patient does seem to be indigestion I will order a 3 view, chest, x-ray of abdomen and KUB to evaluate for additional pathology Patient is at significant risk for heart disease, will review all diagnostic labs EKG does not show acute pathology per my interpretation and attending physician review, Dr. Doty, please see his documentation Signed out to Dr. Marquez pending repeat troponin and EKG Patient is feeling symptomatically improved, he is able to swallow without difficulty, he does not have any current chest discomfort Negative troponin and EKGs, while he does have a significant known cardiac history, it do not feel symptoms are related to a cardiac etiology Chest, abdomen, pelvis did not show acute pathology Repeat respiratory rate is 12 No hypoxia, no history of trauma room air, Repeat blood pressure 129/60, discharge home stable condition with stable vitals at the discretion of Dr. Marquez at 8:00pm Medical Records Medical records reviewed: Yes I reviewed the patient's medical records. Lab Data Lab results reviewed: Yes I reviewed the patient's lab results. <Vladislav Doty MD - Last Filed: 08/07/20 19:30> Patient seen, examined [id number], and discussed with Zaira. I agree with her assessment and plan <Sebastian Marquez MD - Last Filed: 08/07/20 21:41> Patient signed out to me pending repeat EKG and troponin. Had presented with chest discomfort and belching after eating rice. Because of cardiac history was held for second troponin. Please see KUNAL Meneses initial evaluation note. Repeat EKG is unchanged. Repeat troponin negative. Patient feeling much better and will follow up with primary care. Return to ED if new or worsening pain, shortness of breath, syncope, other concerns. Lab Data Lab results reviewed: Yes I reviewed the patient's lab results. ECG Data Attestation: I personally reviewed and interpreted this ECG (s) as follows: Interpretation: see EKG HPI <KUNAL Orourke - Last Filed: 08/09/20 12:29> This 74-year-old gentleman presents with acute onset of chest pain which began after taking a bite of some rice. He denies any pain prior to the onset of his chest discomfort. He states that he actually helped his daughter move today and did not have any exertional symptoms. He denies any recent change in medications. He denies any nausea or vomiting. He states he feels short of breath simply because he is unable to take a deep inspiration. Patient denies any new calf pain or swelling. He denies any radiation of discomfort. He states he has been belching since onset of symptoms. He denies fever or chills. He describes the sensation mostly as a pressure and denies any actual chest pain. He does take edoxaban for prior history of pulmonary embolism. He did not take aspirin prior to arrival. He does have history of pulmonary embolism. He states that his symptoms are not similar to his prior chest discomfort or pulmonary embolism presentation. General Date/Time Provider Initiated Documentation: 08/07/20 18:14. Related Data Home Medications Medication Instructions Recorded Confirmed cholecalciferol (vitamin D3) 1,000 units PO DAILY 10/11/12 08/07/20 nitroglycerin 0.4 mg SUBLINGUAL As directed PRN 01/31/18 08/07/20 #50 tab MDD 3 tabs acetaminophen 500 mg PO PRN PRN 05/04/19 08/07/20 lidocaine [Lidoderm] 1 patch TOPICAL Q24H #4 patch 05/04/19 08/07/20 metoprolol succinate 25 mg 25 mg PO DAILY #90 tab 08/26/19 08/07/20 tablet,extended release 24 hr edoxaban 60 mg tablet 60 mg PO DAILY #90 tab 04/22/20 08/07/20 furosemide 40 mg tablet 40 mg PO DAILY #90 tab-cap 06/25/20 08/07/20 phenytoin sodium extended 100 mg 500 mg PO DAILY #450 tab-cap 06/25/20 08/07/20 capsule simvastatin 40 mg tablet 40 mg PO DAILY #90 tab-cap 07/12/20 08/07/20 Previous Rx's Medication Instructions Recorded lidocaine [Lidoderm] 1 patch TOPICAL Q24H #4 patch 05/04/19 metoprolol succinate 25 mg 25 mg PO DAILY #90 tab 08/26/19 tablet,extended release 24 hr edoxaban 60 mg tablet 60 mg PO DAILY #90 tab 04/22/20 furosemide 40 mg tablet 40 mg PO DAILY #90 tab-cap 06/25/20 phenytoin sodium extended 100 mg 500 mg PO DAILY #450 tab-cap 06/25/20 capsule simvastatin 40 mg tablet 40 mg PO DAILY #90 tab-cap 07/12/20 Allergies Allergy/AdvReac Type Severity Reaction Status Date / Time amoxicillin Allergy Unknown Verified 08/07/20 18:24 Sulfa (Sulfonamide Allergy Unknown Verified 08/07/20 18:24 Antibiotics) General Stated Complaint: Chest Pain JERRICA: 2 <Vladislav Doty MD - Last Filed: 08/07/20 19:30> This 74-year-old gentleman presents with acute onset of chest pain which began after taking a bite of some rice. He denies any pain prior to the onset of his chest discomfort. He states that he actually helped his daughter move today and did not have any exertional symptoms. He denies any recent change in medications. He denies any nausea or vomiting. He states he feels short of breath simply because he is unable to take a deep inspiration. Patient denies any new calf pain or swelling. He denies any radiation of discomfort. He states he has been belching since onset of symptoms. He denies fever or chills. He describes the sensation mostly as a pressure and denies any actual chest pain. He does take edoxaban for prior history of pulmonary embolism. He did not take aspirin prior to arrival. He does have history of pulmonary embolism. He states that his symptoms are not similar to his prior chest discomfort or pulmonary embolism presentation. <Sebastian Marquez MD - Last Filed: 08/07/20 21:41> This 74-year-old gentleman presents with acute onset of chest pain which began after taking a bite of some rice. He denies any pain prior to the onset of his chest discomfort. He states that he actually helped his daughter move today and did not have any exertional symptoms. He denies any recent change in medications. He denies any nausea or vomiting. He states he feels short of breath simply because he is unable to take a deep inspiration. Patient denies any new calf pain or swelling. He denies any radiation of discomfort. He states he has been belching since onset of symptoms. He denies fever or chills. He describes the sensation mostly as a pressure and denies any actual chest pain. He does take edoxaban for prior history of pulmonary embolism. He did not take aspirin prior to arrival. He does have history of pulmonary embolism. He states that his symptoms are not similar to his prior chest discomfort or pulmonary embolism presentation. Review of Systems <KUNAL Orourke - Last Filed: 08/09/20 12:29> Narrative: Review of systems negative x7 aside from where indicated in HPI [facility] <KUNAL Orourke - Last Filed: 08/09/20 12:29> Medical History (Updated 08/07/20 @ 19:36 by KUNAL Orourke) Hyperlipidemia Hypertension Seizures Onset in his late 20's, no seizures for 30 years Surgical History ankle repair Arthroscopy, Shoulder (~2006) 1 vascular Repair of inguinal hernia left x 3 Rotator Cuff Repair Stent placement Family History Mother , AGE 60 Heart disease Father , age 82 Heart disease Colon cancer Sister , AGE 60 Heart disease Sister No problems noted. Sister No problems noted. Brother , AGE 42 No problems noted. Brother No problems noted. Son No problems noted. Daughter No problems noted. Daughter No problems noted. Maternal Grandfather No problems noted. Paternal Grandfather No problems noted. Maternal Grandmother No problems noted. Paternal Grandmother No problems noted. Social History (Updated 06/02/20 @ 11:16 by Uche Resendez) Smoking/Tobacco Use Status: Former Tobacco Use Quit Date: 07/16/71 Tobacco: How many years used: 30 Quit status: quit date established Second Hand Exposure: Yes Smoking risk assessment performed?: Yes Alcohol Intake: never Drug use: Never Substance use type: does not use Caregiver/Support person: No Household members: spouse Housing: house Communication Needs: None Do you need help understanding health information?: Rarely current occupation: [employer] Pets and animals: Yes Pets and animals: dog(s) Sexually active: Yes Do you think of yourself as: straight/heterosexual Current gender identity: male What is your relationship status?: How often do you talk on the phone with friends or family?: decline to answer How often do you get together with friends or relatives?: decline to answer How often do you attend jain or buddhist services?: 1-3 times per year Do you belong to any clubs or organized social groups?: no Panel score (0-1 are the most socially isolated patients): 1 What type of physical activity do you participate in: decline to answer Duration: decline to answer Frequency: decline to answer Bruna/Sabianist: Amish Special bruna needs: No Seatbelt use: always Helmet use: No Drive intox or ride w/intox cryogenic transport driver: No Do you feel safe at home: Yes Do you feel safe in your relationship?: Yes Victim of physical abuse: No Victim of emotional abuse: No Victim of sexual abuse: No Would you like helpful sources: No Exam <KUNAL Orourke - Last Filed: 08/09/20 12:29> Const General: cooperative and no acute distress Nutritional Appearance: thin Orientation: alert HENMT Head: normal to inspection Mouth: oral mucosae normal Eyes General: appearance normal, both eyes and all related structures Neck Thyroid: thyroid normal Chest Chest: normal inspection of the chest Resp Effort & Inspection: normal respiratory effort Auscultation: clear to auscultation bilaterally Cardio Jugular venous pressure: no JVD Rate: regular rate Rhythm: regular rhythm GI Other: No abdominal bruit or pulsatile mass Neuro General: patient alert and patient oriented x3 Cranial Nerves: CN's II-XI intact bilaterally Cognition: normal cognition Speech: speech normal Sensory Exam: no sensory deficits noted Extrem General: pedal edema Other: She has edema in her bilateral lower extremities, no significant tenderness Psych Appearance: well kempt Mental Status: mental status grossly normal Speech and Movement: speech and movement normal Mood: anxious mood Thought Process: normal Thought Content: normal Insight: insight good Judgment: judgment good Course <KUNAL Orourke - Last Filed: 08/09/20 12:29> Vital Signs Vital signs: Vital Signs Temperature 36.5 C 08/07/20 18:17 Pulse 79 08/07/20 18:17 Respiratory Rate 24 08/07/20 18:17 Blood Pressure 157/79 H 08/07/20 18:17 Pulse Oximetry 97 08/07/20 18:17 Temperature 36.5 C 08/07/20 18:17 Temperature Source Temporal Artery Scan 08/07/20 18:17 Pulse 79 08/07/20 18:17 Respiratory Rate 20 08/07/20 18:27 Respiratory Effort 08/07/20 18:27 Respiratory Depth Normal 08/07/20 18:27 Respiratory Pattern Normal 08/07/20 18:27 Blood Pressure 157/79 H 08/07/20 18:17 Blood Pressure Position Supine 08/07/20 18:17 Pulse Oximetry 97 08/07/20 18:17 Oxygen Delivery Method Room Air 08/07/20 18:17 Oxygen Flow Rate 0 08/07/20 18:17 Pain Level 3 08/07/20 18:17 Sign Out <KUNAL Orourke - Last Filed: 08/09/20 12:29> Sign Out Data: Sign Out Comment: pending troponin and Ekg Last updated by Preeti Meneses PA at 08/07/20 20:16
[2020-08-07 18:46] LABS: Abs Immature Grans 0.04 10^3/uL (0.0-0.06); Absolute Basophil Count 0.06 10^3/uL (0.0-0.2); Absolute Eosinophil Count 0.11 10^3/uL (0.0-0.7); Absolute Lymphocyte Count 1.84 10^3/uL (1.2-3.4); Absolute Monocyte Count 0.57 10^3/uL (0.1-0.8); Basophils % 0.9; Eosinophils % 1.6; HCT 41.1 % (40.0-50.0); HGB 14.1 g/dL (13.5-17.5); Immature Grans % 0.6; Lymphocytes % 26.6; MCH 31.1 pg (27.0-33.0); MCHC 34.3 % (32.0-36.0); MCV 90.5 fL (80-95); MPV 9.9 fL (8.0-11.0); Monocytes % 8.2; Neutrophils % 62.1; Nucleated RBC 0 %; Platelet Count 202 10^3/uL (130-400); RBC 4.54 10^6/uL (4.36-5.78); RDW 12.1 % (11.8-14.1); RDW-SD 40.1 fL; WBC 6.92 10^3/uL (4.4-10.8)
[2020-08-07 19:05] LABS: ALT 22 U/L (16-63); AST 20 U/L (15-37); Albumin 4.2 g/dL (3.4-5.0); Alkaline Phosphatase 158 U/L (46-116); Anion Gap 8.9 mmol/L (3-11); BUN 21 mg/dL (7-18); Bilirubin, Total 0.4 mg/dL (0.2-1.0); CO2 29.1 mmol/L (21.0-32.0); CREATININE 0.99 mg/dL (0.70-1.30); Calcium 8.7 mg/dL (8.5-10.1); Chloride 102 mmol/L (98-107); Glucose 94 mg/dL (74-106); Lipase 82 U/L (73-393); NT-proBNP 103 pg/mL (<300); Potassium 3.7 mmol/L (3.5-5.1); Sodium 140 mmol/L (136-145); Total Protein 7.7 g/dL (6.4-8.2)
--- NOTE | 2020-08-07 19:08 | NUR.NOTE ---
Lisandro In room to check on patient and found him to have a large amount of thick clear phlegm in his mask and down his chin and neck. 2 small bits of food noted. Patient mental status unchanged. Remains alert and oriented.Patient cleaned up and Preeti SYED in to assess patient. Sipping on water with minimal difficulty. Given cola per Preeti RIVAS
--- NOTE | 2020-08-07 19:30 | RT.EKG_ITS ---
APPROVED REPORT Exam: Resting ECG Patient Location: E HR:70 bpm ECG Measurements Heart Rate 70 AXIS NJ 171 P 59 QRSd 103 QRS 49 QT 400 T 58 QTc 432 Conclusion Sinus rhythm...normal P axis, V-rate 60- 99 Consider inferior infarct...Q >35mS in II III aVF There are no significant changes compared to prior EKG performed on 08/07/2020 at 18:19.
--- NOTE | 2020-08-07 19:44 | DI.RAD_ITS ---
EXAM: XR ABD FLAT UPRIGHT PA CHEST CLINICAL HISTORY: abd and chest pain. TECHNIQUE: 2D digital imaging was performed. COMPARISON: CR,XR XR CHEST 2V PA LATERAL from 05/04/2019 FINDINGS: Frontal view of the chest plus supine and upright views of the abdomen, reveal upper normal heart siz e. Mediastinum not widened. There are no infiltrates nor pleural effusions. No pulmonary edema. T here is evidence of previous rotator cuff surgery in the right shoulder. In the abdomen there is no free air. There is is an air-filled central and left-sided bowel loop, di fficult to determine small versus large bowel. Possibly part of the transverse colon. There is feca l material noted in the ascending-right and descending-left:. No obvious calcifications seen in the kidneys at and course of the ureters. Regional bones unremarkable. IMPRESSION: There is a air filled bowel loop across the central abdomen-pelvis which is either transverse colon o r an abnormal appearing small bowel loops. There is no free air. If clinically indicated further st udy with CT scan can be performed. The lungs are clear. DATA REPOSITORY: RADIATION DOSE DELIVERED:
[2020-08-07 19:59] LABS: Troponin I < 0.05 ng/mL (<0.06)
--- NOTE | 2020-08-07 20:05 | DI.VRAD_ITS ---
PROCEDURE INFORMATION: Exam: XR Complete Acute Abdomen Series Exam date and time: 08/07/2020 7:45 PM Age: 74 years old Clinical indication: Abdominal pain; Generalized; Patient HX: Abdomen and chest pain TECHNIQUE: Imaging protocol: XR complete acute abdomen series, including 2 or more views of the abdomen and a single view chest. COMPARISON: CR XR CHEST 2V PA LATERAL 05/04/2019 10:45 PM FINDINGS: Lungs: No acute consolidation or mass. Pleural space: Normal. No pneumothorax. Heart/Mediastinum: Normal. No cardiomegaly. Gastrointestinal tract: Gas and stool throughout the colon, including the rectum. Air-filled sigmoid colon. No dilated small bowel. No significant air-fluid levels. No pathologic calcifications. Intraperitoneal space: No free air under the diaphragm on the upright image. Bones/joints: Normal. No acute fracture. Soft tissues: Normal. IMPRESSION: No significant abnormality. Dictated and Authenticated by: Osmin Holden MD. Ordering:DRAGAN Álvarez MD
[2020-08-07 21:35] LABS: Troponin I < 0.05 ng/mL (<0.06)
== END 2020-08-07 22:00 | disposition home or self-care (01) ==
PROVIDERS: Physician Assistant; Emergency Provider Emergency Medicine; PCP Family Medicine
DX: R13.10 Dysphagia, unspecified (principal); R14.2 Eructation; I10 Essential (primary) hypertension
CPT/HCPCS: 36415; 80053; 83690; 93005; 99285; 74022; 83735; 83880; 84484; 85025; 93010; 99284

== ENCOUNTER → 2020-08-23 14:23 | Outpatient (BNVA) | payer BC, MEDICARE, SELFPAY | PROVIDERS: PCP Family Medicine; Referring Provider Family Medicine; Visit Provider Surgery | DX: R13.19 Other dysphagia (principal); Z80.0 Family history of malignant neoplasm of digestive organs | CPT/HCPCS: 99203; 99215 ==

== ENCOUNTER 2020-08-31 07:28 | Emergency (ER) | payer BC, MEDICARE, SELFPAY ==
[2020-08-31] VITALS (18 sets, daily range): BP systolic 130–168; BP diastolic 68–100; PULSE 58–73; RESP 14–18; TEMP 36.6–36.8; O2SAT 95–97
--- NOTE | 2020-08-31 07:30 | DI.CT_ITS ---
EXAM: CT ABDOMEN CTA CLINICAL HISTORY: abdominal pain, ?mesenteric ischemia TECHNIQUE: COMPARISON: CT CHEST WITH CONTRAST from 04/23/2010 FINDINGS: CT angiography of the abdomen and pelvis was performed with bolus infusion of 100 cc of Omnipaque 350 . The liver contains couple of sub centimeter low attenuation lesions too small to characterize but pro bably small cysts period. Spleen is unremarkable in appearance.. Gallbladder and bile ducts are unremarkable. Pancreas is unremarkable in appearance. Adrenals appear normal bilaterally. The right kidney is unremarkable in appearance, no evidence of hydronephrosis, nephrolithiasis, or re nal mass. The left kidney contains a 2 cm in diameter anterior enhancing midpole cortical mass, this was not pr esent on prior CT of April 2010. This is indeterminate for malignancy and renal protocol MRI is re commended. No additional renal mass seen. No nephrolithiasis or hydronephrosis. There is no evidence of abdominal or pelvic adenopathy. Abdominal aorta is of normal diameter. 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 The superior mesenteric artery, renal arteries, and inferior mesenteric artery are well maintained with no significant stenosis or aneurysm. Major branches of t he celiac trunk appear of normal caliber and patent.. Appendix is normal. No evidence diverticulitis or bowel obstruction. No significant abdominal wall hernia seen. 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 Please correlate clinica lly regarding possibility of visceral ischemia. New 2 cm in diameter enhancing left renal mass, renal protocol MRI requested to evaluate the possibil ity of renal neoplastic disease. RADIATION DOSE DELIVERED: 2,182.9mGy.cm Total DLP 2,182.9mGy.cm Total DLP DATA REPOSITORY: All CT scans at this facility are submitted to the National Radiology Data Registry (NRDR) Dose Index Registry (DIR) with the [employer] (A[employer]). RADIATION OPTIMIZATION: All CT scans at this facility use at least one of these dose optimization te chniques: automated exposure control; mA and/or kV adjustment per patient size (includes targeted exa ms where dose is matched to clinical indication); or iterative reconstruction.
--- NOTE | 2020-08-31 07:38 | W.ED.GENAD ---
Discharge Plan Disposition Patient Disposition: [facility] Condition: Stable Discharge Details Clinical Impression: Abdominal pain, Celiac artery stenosis, Left renal mass Primary Care Provider: Bob Johnson ED Provider: Magalys Rivera Home Meds and New Rx's Prescriptions: No Action nitroglycerin 0.4 MG tablet, sublingual 0.4 mg Sublingual As directed MDD 3 tabs PRNQty: 50 RF: 4 edoxaban 60 mg tablet 60 mg PO DAILY Qty: 90 RF: 3 phenytoin sodium extended 100 mg capsule 500 mg PO DAILY Qty: 450 RF: 4 furosemide 40 mg tablet 40 mg PO DAILY Qty: 90 RF: 4 simvastatin 40 mg tablet 40 mg PO DAILY Qty: 90 RF: 4 metoprolol succinate 25 mg tablet extended release 24 hr 25 mg PO DAILY Qty: 90 RF: 4 cholecalciferol (vitamin D3) 1,000 UNITS tablet 1,000 units PO DAILY RF: 0 acetaminophen 500 mg Tablet 500 mg PO PRN PRNRF: 0 lidocaine [Lidoderm] 1 PATCH patch 1 patch Topical Q24H Qty: 4 RF: 0 Medical Decision Making <Srinivas Mcgarry MD - Last Filed: 08/31/20 07:45> 74 yo male with hx of prior pe, dvt, seizure, comes in with mid abdominal pain for the past few days and recurred this morning. He states it is sharp and in the central abdomen. Wasn seen on 08/07 for pain in the chest after eating and is scheduled for endoscopy later this month but states this pain is different. He denies fevers, vomit, chills, chest pain or dyspnea. He is tender in the mid abdomen and has had a prior hernia repair otherwise no abodminal surgeries. Multiple different potential etiologies including sbo, mesenteric ischemia, pancreatitis, will obtain labs and cta to further evaluate. Pt declines pain meds at this time Will be signed out to Dr. Rivera pending labs, imaging and dispo Differential Diagnosis Differential Diagnosis: gerd, cholecystitis, pancreatitis, mesenteric ischemia Medical Records Medical records reviewed: Yes I reviewed the patient's medical records. <Magalys Rivera DO - Last Filed: 08/31/20 12:03> 0800 --please see Dr. Mcgarry's note for initial presentation, exam and plan. Case endorsed to follow-up on labs and imaging and final disposition. Patient evaluated by me at bedside. He states since his visit here a few weeks ago for chest pain and indigestion after eating, he has had continued belching throughout the day, even waking him in the night, as well as intermittent crampy periumbilical abdominal pain which was worse this morning after awakening. He denies any chest pain, shortness of breath or dizziness. He does admit to intermittent nausea but denies any vomiting, diarrhea, change in bowel movements, rectal bleeding or urinary symptoms. He states he has been eating more liquids as he feels that sometimes his symptoms are worsened with food. He states his pain is currently 4-5/10 but is continuing to decline any pain or nausea medication. His abdomen is soft and tender in the left upper quadrant, periumbilical and left lower quadrant. Labs reviewed. White blood cell count normal at 4. Lactate normal at 1.1. Normal metabolic panel. Urinalysis small blood but no evidence of infection. 929 -- CT reviewed. There is a greater than 95% stenosis of the proximal celiac trunk in addition to a 2 cm left renal mass not noted on previous imaging. Results discussed with patient and daughter. Daughter expressed that patient is usually quite stoic and does not come to the ER easily and she is quite concerned about his level of pain. Images pushed to [facility] vascular surgery. 1030 --imaging reviewed with [facility] vascular surgery. They are suspecting the celiac trunk stenosis is likely chronic and may not be the source of his pain. Other possibilities include median arcuate ligament strain. They agree it is reasonable for patient to be transferred to [facility] ER for further evaluation by them as well as general surgery. We also discussed the left renal mass. Patient reassessed and still complaining of pain at 4/10 but is continuing to decline any pain medication. He remains hemodynamically stable and in no acute distress. Patient stated he did not yet take his edoxaban this morning. Plan discussed with patient and daughter and they are agreeable with plan. Medical Records Medical records reviewed: Yes I reviewed the patient's medical records. Imaging Data Radiologic Study: Radiologist's impression: CT ABDOMEN CTA CLINICAL HISTORY: abdominal pain, ?mesenteric ischemia TECHNIQUE: COMPARISON: CT CHEST WITH CONTRAST from 04/23/2010 FINDINGS: CT angiography of the abdomen and pelvis was performed with bolus infusion of 100 cc of Omnipaque 350. The liver contains couple of sub centimeter low attenuation lesions too small to characterize but probably small cysts period. Spleen is unremarkable in appearance.. Gallbladder and bile ducts are unremarkable. Pancreas is unremarkable in appearance. Adrenals appear normal bilaterally. The right kidney is unremarkable in appearance, no evidence of hydronephrosis, nephrolithiasis, or renal mass. The left kidney contains a 2 cm in diameter anterior enhancing midpole cortical mass, this was not present on prior CT of April 2010. This is indeterminate for malignancy and renal protocol MRI is recommended. No additional renal mass seen. No nephrolithiasis or hydronephrosis. There is no evidence of abdominal or pelvic adenopathy. Abdominal aorta is of normal diameter. There is a severe stenosis of the proximal celiac trunk of greater than 95 percent luminal diameter. The superior mesenteric artery, renal arteries, and inferior mesenteric artery are well maintained with no significant stenosis or aneurysm. Major branches of the celiac trunk appear of normal caliber and patent.. Appendix is normal. No evidence diverticulitis or bowel obstruction. No significant abdominal wall hernia seen. 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 Please correlate clinically regarding possibility of visceral ischemia. New 2 cm in diameter enhancing left renal mass, renal protocol MRI requested to evaluate the possibility of renal neoplastic disease. Lab Data Lab results reviewed: Yes I reviewed the patient's lab results. Labs: Laboratory Tests Range/Units 08/31/20 08/31/20 08/31/20 07:47 07:55 07:55 WBC (4.4-10.8) 10^3/uL RBC (4.36-5.78) 10^6/uL Hgb (13.5-17.5) g/dL Hct (40.0-50.0) % MCV (80-95) fL MCH (27.0-33.0) pg MCHC (32.0-36.0) % RDW (11.8-14.1) % Plt Count (130-400) 10^3/uL MPV (8.0-11.0) fL Immature Gran % Neutrophils % Lymphocytes % Monocytes % Eosinophils % Basophils % Nucleated RBC % % Absolute Neutrophils (1.2-6.7) 10^3/uL Absolute Lymphocytes (1.2-3.4) 10^3/uL Absolute Monocytes (0.1-0.8) 10^3/uL Absolute Eosinophils (0.0-0.7) 10^3/uL Absolute Basophils (0.0-0.2) 10^3/uL PT (9.3-11.0) sec INR (0.9-1.1) APTT (21.0-27.5) sec VBG Lactate (0.6-1.4) mmol/L 1.1 Sodium (136-145) mmol/L 140 Potassium (3.5-5.1) mmol/L 4.0 Chloride (98-107) mmol/L 104 Carbon Dioxide (21.0-32.0) mmol/L 26.5 Anion Gap (3-11) mmol/L 9.5 BUN (7-18) mg/dL 19 H Creatinine (0.70-1.30) mg/dL 0.9 Estimated GFR/1.73 m2 (mL/min/1.73m2) >= 60.00 Glucose (74-106) mg/dL 98 Calcium (8.5-10.1) mg/dL 8.2 L Magnesium (1.8-2.4) mg/dL 2.1 Total Bilirubin (0.2-1.0) mg/dL 0.3 Conjugated Bilirubin (0.00-0.20) mg/dL < 0.05 AST (15-37) U/L 16 ALT (16-63) U/L 24 Alkaline Phosphatase (46-116) U/L 161 H Total Protein (6.4-8.2) g/dL 7.1 Albumin (3.4-5.0) g/dL 3.8 Lipase (73-393) U/L 86 Urine Color (Yellow) Yellow Urine Clarity (Clear) Clear Urine pH (5-8) 7.0 Ur Specific [place] (1.005-1.025) 1.025 Urine Protein (Negative) mg/dL 30 H Urine Ketones (Negative) mg/dL Negative Urine Blood (Negative) Negative Urine Nitrite (Negative) Negative Urine Bilirubin (Negative) Negative Urine Urobilinogen (Up TO 0.2) EU/dL 0.2 Ur Leukocyte Esterase (Negative) Negative Urine RBC (0-2) HPF 3-5 H Urine WBC (0-5) HPF 0-2 Ur Epithelial Cells (Negative) HPF Rare Urine Crystals (Negative) HPF Negative Urine Bacteria (Negative) HPF Rare Urine Casts (Negative) LPF Negative Urine Mucus (Negative) Trace Ur Culture Indicated? No Urine Glucose (Negative) mg/dL Negative Range/Units 08/31/20 08/31/20 07:55 07:55 WBC (4.4-10.8) 10^3/uL 4.65 RBC (4.36-5.78) 10^6/uL 4.37 Hgb (13.5-17.5) g/dL 13.4 L Hct (40.0-50.0) % 39.7 L MCV (80-95) fL 90.8 MCH (27.0-33.0) pg 30.7 MCHC (32.0-36.0) % 33.8 RDW (11.8-14.1) % 12.1 Plt Count (130-400) 10^3/uL 182 MPV (8.0-11.0) fL 9.7 Immature Gran % 0.4 Neutrophils % 61.7 Lymphocytes % 22.6 Monocytes % 10.5 Eosinophils % 3.9 Basophils % 0.9 Nucleated RBC % % 0 Absolute Neutrophils (1.2-6.7) 10^3/uL 2.87 Absolute Lymphocytes (1.2-3.4) 10^3/uL 1.05 L Absolute Monocytes (0.1-0.8) 10^3/uL 0.49 Absolute Eosinophils (0.0-0.7) 10^3/uL 0.18 Absolute Basophils (0.0-0.2) 10^3/uL 0.04 PT (9.3-11.0) sec 10.8 INR (0.9-1.1) 1.1 APTT (21.0-27.5) sec 22.6 VBG Lactate (0.6-1.4) mmol/L Sodium (136-145) mmol/L Potassium (3.5-5.1) mmol/L Chloride (98-107) mmol/L Carbon Dioxide (21.0-32.0) mmol/L Anion Gap (3-11) mmol/L BUN (7-18) mg/dL Creatinine (0.70-1.30) mg/dL Estimated GFR/1.73 m2 (mL/min/1.73m2) Glucose (74-106) mg/dL Calcium (8.5-10.1) mg/dL Magnesium (1.8-2.4) mg/dL Total Bilirubin (0.2-1.0) mg/dL Conjugated Bilirubin (0.00-0.20) mg/dL AST (15-37) U/L ALT (16-63) U/L Alkaline Phosphatase (46-116) U/L Total Protein (6.4-8.2) g/dL Albumin (3.4-5.0) g/dL Lipase (73-393) U/L Urine Color (Yellow) Urine Clarity (Clear) Urine pH (5-8) Ur Specific [place] (1.005-1.025) Urine Protein (Negative) mg/dL Urine Ketones (Negative) mg/dL Urine Blood (Negative) Urine Nitrite (Negative) Urine Bilirubin (Negative) Urine Urobilinogen (Up TO 0.2) EU/dL Ur Leukocyte Esterase (Negative) Urine RBC (0-2) HPF Urine WBC (0-5) HPF Ur Epithelial Cells (Negative) HPF Urine Crystals (Negative) HPF Urine Bacteria (Negative) HPF Urine Casts (Negative) LPF Urine Mucus (Negative) Ur Culture Indicated? Urine Glucose (Negative) mg/dL HPI <Srinivas Mcgarry MD - Last Filed: 08/31/20 07:45> General Mode of arrival: ambulatory. Date/Time Provider Initiated Documentation: 08/31/20 07:30. Limitations to Documentation: no limitations. Information obtained by: patient. History of Present Illness 74 year old M presents to the emergency department with the chief complaint of abdominal pain, described as moderate, and is localized to the abdomen. Patient reports no radiation. Patient started experiencing this day(s) (1) and it has been constant. No relieving factors improve symptom(s), No exacerbating factors reported . Patient did receive the following treatments prior to arrival, none Related Data Home Medications Medication Instructions Recorded Confirmed cholecalciferol (vitamin D3) 1,000 units PO DAILY 10/11/12 08/31/20 nitroglycerin 0.4 mg SUBLINGUAL As directed PRN 01/31/18 08/31/20 #50 tab MDD 3 tabs acetaminophen 500 mg PO PRN PRN 05/04/19 08/31/20 lidocaine [Lidoderm] 1 patch TOPICAL Q24H #4 patch 05/04/19 08/31/20 edoxaban 60 mg tablet 60 mg PO DAILY #90 tab 04/22/20 08/31/20 furosemide 40 mg tablet 40 mg PO DAILY #90 tab-cap 06/25/20 08/31/20 phenytoin sodium extended 100 mg 500 mg PO DAILY #450 tab-cap 06/25/20 08/31/20 capsule simvastatin 40 mg tablet 40 mg PO DAILY #90 tab-cap 07/12/20 08/31/20 metoprolol succinate 25 mg 25 mg PO DAILY #90 tab 08/26/20 08/31/20 tablet,extended release 24 hr Previous Rx's Medication Instructions Recorded lidocaine [Lidoderm] 1 patch TOPICAL Q24H #4 patch 05/04/19 edoxaban 60 mg tablet 60 mg PO DAILY #90 tab 04/22/20 furosemide 40 mg tablet 40 mg PO DAILY #90 tab-cap 06/25/20 phenytoin sodium extended 100 mg 500 mg PO DAILY #450 tab-cap 06/25/20 capsule simvastatin 40 mg tablet 40 mg PO DAILY #90 tab-cap 07/12/20 metoprolol succinate 25 mg 25 mg PO DAILY #90 tab 08/26/20 tablet,extended release 24 hr Allergies Allergy/AdvReac Type Severity Reaction Status Date / Time amoxicillin Allergy Unknown Verified 08/31/20 07:41 Sulfa (Sulfonamide Allergy Unknown Verified 08/31/20 07:41 Antibiotics) General JERRICA: 2 Review of Systems <Srinivas Mcgarry MD - Last Filed: 08/31/20 07:45> All systems reviewed & are unremarkable except as noted in HPI and below Constitutional Constitutional: Denies chills, Denies fever(s) and Denies weakness Cardiovascular Cardiovascular: Denies chest pain and Denies dyspnea Respiratory Respiratory: Denies cough and Denies dyspnea Gastrointestinal Gastrointestinal: Denies vomiting Musculoskeletal Musculoskeletal: Denies joint swelling Neurologic Neurologic: Denies weakness PFSH <Srinivas Mcgarry MD - Last Filed: 08/31/20 07:45> Medical History (Updated 08/31/20 @ 11:00 by Magalys Rivera DO) Hyperlipidemia Hypertension Seizures Onset in his late 20's, no seizures for 30 years Surgical History ankle repair Arthroscopy, Shoulder (~2005) 1 vascular Repair of inguinal hernia left x 3 Rotator Cuff Repair Stent placement Family History Mother , AGE 60 Heart disease Father , age 82 Heart disease Colon cancer Sister , AGE 60 Heart disease Sister No problems noted. Sister No problems noted. Brother , AGE 42 No problems noted. Brother No problems noted. Son No problems noted. Daughter No problems noted. Daughter No problems noted. Maternal Grandfather No problems noted. Paternal Grandfather No problems noted. Maternal Grandmother No problems noted. Paternal Grandmother No problems noted. 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 Pets and animals: Yes Pets and animals: dog(s) Sexually active: Yes Do you think of yourself as: straight/heterosexual Current gender identity: male What is your relationship status?: How often do you talk on the phone with friends or family?: decline to answer How often do you get together with friends or relatives?: decline to answer How often do you attend sabianist or anabaptism services?: 1-3 times per year Do you belong to any clubs or organized social groups?: no Panel score (0-1 are the most socially isolated patients): 1 What type of physical activity do you participate in: decline to answer Duration: decline to answer Frequency: decline to answer Bruna/Jainism: Hinduism Special bruna needs: No Seatbelt use: always Helmet use: No Drive intox or ride w/intox route salesman and driver: No Do you feel safe at home: Yes Do you feel safe in your relationship?: Yes Victim of physical abuse: No Victim of emotional abuse: No Victim of sexual abuse: No Would you like helpful sources: No Exam <Srinivas Mcgarry MD - Last Filed: 08/31/20 07:45> Const General: no acute distress Orientation: alert HENSC Head: normal to inspection Ears: external ears normal General nose exam: external nose normal Mouth: moist mucous membranes Eyes General: appearance normal, both eyes and all related structures Neck Neck: normal visual inspection Resp Effort & Inspection: normal respiratory effort and able to speak in complete sentences Cardio Rate: regular rate GI Inspection: striae Palpation: tender Skin General skin exam: no rashes or lesions noted Neuro General: patient alert and patient oriented x3 Extrem General: normal to inspection Psych Mental Status: mental status grossly normal Sign Out <Srinivas Mcgarry MD - Last Filed: 08/31/20 07:45> Sign Out Data: Sign Out Comment: abdomen pain, pending labs, cta and dispo Last updated by Srinivas Mcgarry MD at 08/31/20 07:45
[2020-08-31 07:51] LABS: Bilirubin Negative (Negative); Blood Negative (Negative); Clarity Clear (Clear); Glucose Negative (Negative); Ketones Negative (Negative); Leukocyte Esterase Negative (Negative); Nitrite Negative (Negative); Specific Gravity 1.025 (1.005-1.025); Urobilinogen 0.2 EU/dL (Up TO 0.2)
[2020-08-31 08:01] LABS: Bacteria Rare HPF (Negative); Crystals Negative HPF (Negative); Epithelial Cells Rare HPF (Negative); WBC 0-2 HPF (0-5)
[2020-08-31 08:01] LABS: Abs Immature Grans 0.02 10^3/uL (0.0-0.06); Absolute Basophil Count 0.04 10^3/uL (0.0-0.2); Absolute Eosinophil Count 0.18 10^3/uL (0.0-0.7); Absolute Lymphocyte Count 1.05 10^3/uL (1.2-3.4); Absolute Monocyte Count 0.49 10^3/uL (0.1-0.8); Absolute Neutrophil Count 2.87 10^3/uL (1.2-6.7); Basophils % 0.9; Eosinophils % 3.9; HCT 39.7 % (40.0-50.0); HGB 13.4 g/dL (13.5-17.5); Immature Grans % 0.4; Lactate 1.1 mmol/L (0.6-1.4); Lymphocytes % 22.6; MCH 30.7 pg (27.0-33.0); MCHC 33.8 % (32.0-36.0); MCV 90.8 fL (80-95); MPV 9.7 fL (8.0-11.0); Monocytes % 10.5; Neutrophils % 61.7; Nucleated RBC 0 %; Platelet Count 182 10^3/uL (130-400); RBC 4.37 10^6/uL (4.36-5.78); RDW 12.1 % (11.8-14.1); RDW-SD 40.5 fL; WBC 4.65 10^3/uL (4.4-10.8)
[2020-08-31 08:02] LABS: C & S Indicated? No; Casts Negative LPF (Negative); Mucus Trace (Negative)
[2020-08-31] MEDS: Normal Saline 500 ML 1000 ML IV (08:07)
[2020-08-31 08:15] LABS: INR 1.1 (0.9-1.1); PTT Activated 22.6 sec (21.0-27.5); Prothrombin Time 10.8 sec (9.3-11.0)
[2020-08-31 08:16] LABS: ALT 24 U/L (16-63); AST 16 U/L (15-37); Albumin 3.8 g/dL (3.4-5.0); Alkaline Phosphatase 161 U/L (46-116); Anion Gap 9.5 mmol/L (3-11); BUN 19 mg/dL (7-18); Bilirubin, Total 0.3 mg/dL (0.2-1.0); CO2 26.5 mmol/L (21.0-32.0); CREATININE 0.9 mg/dL (0.70-1.30); Calcium 8.2 mg/dL (8.5-10.1); Chloride 104 mmol/L (98-107); Glucose 98 mg/dL (74-106); Lipase 86 U/L (73-393); Magnesium 2.1 mg/dL (1.8-2.4); Sodium 140 mmol/L (136-145); Total Protein 7.1 g/dL (6.4-8.2)
[2020-08-31 08:17] LABS: Bilirubin, Direct < 0.05 mg/dL (0.00-0.20)
--- NOTE | 2020-08-31 09:30 | RT.EKG_ITS ---
APPROVED REPORT Exam: Resting ECG Patient Location: E HR:63 bpm ECG Measurements Heart Rate 63 AXIS VA 178 P 59 QRSd 99 QRS 3 QT 398 T 60 QTc 408 Conclusion Sinus rhythm...normal P axis, V-rate 60- 99 I have reviewed and interpreted ECG and agree with software generated interpretation.
== END 2020-08-31 12:26 | disposition short-term general hospital (02) ==
PROVIDERS: Emergency Medicine; Emergency Provider Physician Assistant; PCP Family Medicine
DX: I77.4 Celiac artery compression syndrome (principal); N28.89 Other specified disorders of kidney and ureter; R10.9 Unspecified abdominal pain; Z98.890 Other specified postprocedural states; I10 Essential (primary) hypertension
CPT/HCPCS: 74175; 80053; 83690; 93005; 99285; 81003; 81015; 82248; 83605; 83735; 85025; 85610; 85730; 93010

== ENCOUNTER 2020-09-10 09:56 | Day surgery (SDC) | payer BC, MEDICARE, SELFPAY ==
[2020-09-10 10:05] VITALS: BP 136/68; PULSE 62; RESP 16; TEMP 36.3; O2SAT 95
[2020-09-10] MEDS: Lactated Ringers 1,000 ML 80 ML IV (10:44)
--- NOTE | 2020-09-10 11:40 | STOM_PTH ---
PATIENT: Osmin Anderson LOC: [facility] U#:[id number] AGE/SX: 74/M ROOM: RE09/10/[address]: Apple Khan : 1945 BED: DIS: 09/10/2020 SPEC #: [id number] RECD: 09/10/20 12:30 STATUS: KRYSETN REGarrett #: [id number] RAVI: 09/10/20 11:[address]: Apple Khan DEPT: Surgical Specimen RECD BY: Preeti Paulino ENTERED: 09/10/20 12:32 SP TYPE: STOMACH OTHR DR: Bob Johnson MD Tissues: 1 - BIOPSY BOWEL 2 - BIOPSY BOWEL 3 - STOMACH BIOPSY 4 - STOMACH BIOPSY 5 - ESOPHAGUS BIOPSY 6 - ESOPHAGUS BIOPSY Procedures: GROSS AND MICRO LEVEL 4 Comments: [id number]
--- NOTE | 2020-09-10 11:50 | W.PM.ENDDOP ---
Date of service: 09/10/20 Time of Service: 11:50 Endoscopy Report PRE-OP DIAGNOSIS: dysphagia POST-OP DIAGNOSIS: other (hiatal hernia/bile reflux gasritis ) PROCEDURE: w/ biopsy ANESTHESIA: GETA ESTIMATED BLOOD LOSS: 1 PATHOLOGY: other COMPLICATIONS: None DISPOSITION: same day PROCEDURE DESCRIPTION: After informed consent was obtained the patient was take to the procedure room and placed in a supine position. Monitors were applied and a time out was done. The patients name, date of , procedure type, allergies to medications and metal in their body was reviewed. A bite block was placed and the patient was sedated. Once sedated and comfortable the gastroscope was advanced through the oropharynx which was grossly normal into the esophagus. The proximal and mid-esophagus were nl. In the distal esophagus there was lg hiatal hernia noted. There are no esophageal varices, erosions, diverticula or stricture apparent. 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 Multiple biopsies are taken. All specimens are retrieved and no bleeding is noted. Patient has no significant strictures. The scope was advanced into the stomach and through the pylorus into the 3rd portion of the duodenum. Bile reflux was noted all the way up to the level of the GE junction. There is some mild gastritis noted throughout the stomach. Biopsies were taken of the proximal jejunum, duodenum, greater curve, distal esophagus, and GE junction. The duodenum was noted to be nl. Biopsies were done . The scope was retracted back into the stomach and biopsies were done to rule out H. pylori. There were no ulcers. The scope was retroflexed. The cardia and fundus were noted to be normal. There lg a hiatal hernia noted. The scope was retracted back into the esophagus and biopsies were done of the GE junction to rule out Soria's. The Z line was irregular. The scope was removed and the patient was woken up and taken back to [facility] in stable condition. Follow up: 2 weeks
--- NOTE | 2020-09-10 11:56 | W.PM.DSUDISC ---
Discharge Plan Disposition Patient Disposition: HOME Condition: Good Discharge Details Reason For Visit: egd and Bx Attending Provider: Apple Khan Primary Care Provider: Bob Johnson Home Meds and New Rx's Prescriptions: New pantoprazole [Protonix] 40 mg tablet,delayed release (DR/EC) 40 mg PO .am Qty: 90 RF: 4 sucralfate [Carafate] 1 gram tablet 1 g PO .as instructed Qty: 60 RF: 12 Continued nitroglycerin 0.4 MG tablet, sublingual 0.4 mg Sublingual As directed MDD 3 tabs PRNQty: 50 RF: 4 phenytoin sodium extended 100 mg capsule 500 mg PO DAILY Qty: 450 RF: 4 furosemide 40 mg tablet 40 mg PO DAILY Qty: 90 RF: 4 simvastatin 40 mg tablet 40 mg PO DAILY Qty: 90 RF: 4 metoprolol succinate 25 mg tablet extended release 24 hr 25 mg PO DAILY Qty: 90 RF: 4 enoxaparin [Lovenox] 100 mg/mL syringe 100 mg subcut Q12H Qty: 8 RF: 0 cholecalciferol (vitamin D3) 1,000 UNITS tablet 1,000 units PO DAILY RF: 0 acetaminophen 500 mg Tablet 500 mg PO PRN PRNRF: 0 lidocaine [Lidoderm] 1 PATCH patch 1 patch Topical Q24H Qty: 4 RF: 0 No Action edoxaban 60 mg tablet 60 mg PO DAILY Qty: 90 RF: 3 Discharge Instructions Instructions: Hiatal Hernia (GEN), Gastritis (GEN) Additional Instructions: Findings:Lg hiatal hernia. BIle reflux gastritis -Resume edoxaban on Sunday -Resume lovenox at 9pm 09/10. Continue until 9am on Sunday -Absolutely no ASA/NSAID's x 2 wk -No alcohol for two weeeks time New medication: Carafate -if any increase in abdominal pain, coughing or vomiting up blood or blood in stools- go to the ER. Continue with lifestyle modifications: no alcohol, tobacco products, Aspirin or NSAID's (ibuprofen, Motrin, Naprosyn, aleve, etc). Try to limit: soda pop/any carbonated beverages, caffeine (including tea & chocolate), and acidic foods, (tomatoes, citrus, onions, peppermints) spicy or fried/fatty foods. Do not lie down for 30 minutes after eating, and do not eat 2 hours prior to bedtime. Avoid wearing tight fitting clothing/ belts -Follow up:2 wks w/ jaime Please call if you develop: fevers >101.5 Nausea or Vomiting Abdominal pain that is not transient DAY SURGERY UNIT POST COLONOSCOPY INSTRUCTIONS 1. Because there will be medication in your system for the next 24 hours, you may feel a little sleepy. Your coordination will be affected. Therefore: a. Do not drive or operate dangerous equipment for 24 hours. b. Do not drink alcohol beverages for 24 hours (not even beer). c. Plan to go home and rest for the day. 2. Generally there are no restrictions on your activity after a day or so has gone by, but you may feel a bit fatigued for a few days. 3 After you arrive home you may have a light meal and return to a normal diet as you can tolerate it without feeling sick to your stomach. 4. After surgery, you may feel pain or discomfort. This should be only transient, but if it persists please contact your doctor. 5. If there are any questions regarding the findings of your procedure, please feel free to contact your doctor. 6. If you are unable to contact your doctor with a problem, contact the hospital at [phone]. 7. Continue all your regular medications unless directed otherwise. I understand the above instructions and have no questions. Signature of Patient or Responsible Adult Escort Date/Time Name of Responsible Adult Escort Signature of Nurse Date/Time Stand Alone Forms: Anesthesia Discharge Inst. Referrals: Apple Khan, [OSTEOPATHIC DOCTOR] - 09/23/20 3:00 pm Activity:: No strenuous activity or lifting over 20 pounds x 24 hours. Diet:: Small light meals x24 hours. Discharge Orders Discharge Orders: Discharge Order (Routine); Ordered 09/10/20 Ordered By: Apple Khan DS: Diagnosis Discharge Diagnosis (1) Hiatal hernia with GERD: Status: Acute (2) Bile reflux gastritis: Status: Acute (3) Coronary artery disease: Status: Acute (4) Pulmonary embolism: Status: Chronic
[2020-09-10 12:26] VITALS: BP 141/78; PULSE 54; RESP 16; TEMP 36.5; O2SAT 97
== END 2020-09-10 09:57 | disposition home or self-care (01) ==
PROVIDERS: PCP Family Medicine; Visit Provider Surgery
PROC: 0DJ68ZZ Inspection of Stomach, Via Natural or Artificial Opening Endoscopic (ICD-10-PCS; CPT 43235; principal; 2020-09-10 10:30)
DX: K21.00 Gastro-esophageal reflux disease with esophagitis, without bleeding (principal); K44.9 Diaphragmatic hernia without obstruction or gangrene; K29.70 Gastritis, unspecified, without bleeding; I25.10 Atherosclerotic heart disease of native coronary artery without angina pectoris; Z80.0 Family history of malignant neoplasm of digestive organs
CPT/HCPCS: 43239; 88305; J2001; J2704

== ENCOUNTER 2020-10-15 03:58 | Outpatient (CLI) | payer BC, MEDICARE, SELFPAY ==
--- NOTE | 2020-10-15 07:00 | DI.MRI_ITS ---
EXAM: MR ABDOMEN WO/W also and favor polyps CLINICAL HISTORY: left renal mass,n28.89,r93.5,f/u abnl ct. TECHNIQUE: Multiplanar multisequence MRI was performed. COMPARISON: CT CT ABDOMEN CTA from 08/31/2020 FINDINGS: MR examination of the abdomen was performed utilizing renal protocol to evaluate enhancing left mid t o upper pole mass identified on recent CT examination. Evaluation of the liver is unremarkable except for multiple small hepatic cysts as noted on CT. Sple en is unremarkable. Pancreas shows normal signal. No biliary dilatation, unremarkable appearance of gallbladder. Abdominal aorta and major branch vessels appear intact. No retroperitoneal adenopathy . Adrenals appear normal bilaterally. Right kidney shows normal signal throughout with no evidence of a right renal mass lesion or hydronephrosis. Left kidney contains an 18 millimeter in diameter mid to upper pole anterior cortical lesion. This s hows signal characteristics consistent with a solid renal mass. No evidence of significant intralesi onal fat on opposed phase imaging. Post contrast imaging shows heterogeneous enhancement, confirmed on subtraction images. IMPRESSION: Findings as described above are suggestive of a small renal neoplasm, 1.8-2 cm in diameter. Close fo llow-up or biopsy should be considered. DATA REPOSITORY:
[2020-10-15] MEDS: Normal Saline Flush 10 ML SYR IVP (10:16)
[2020-10-15] MEDS: Gadoterate meglumine 20 ML VIAL IVP (10:17)
== END 2020-10-15 04:18 ==
PROVIDERS: PCP Family Medicine; Visit Provider Surgery
DX: N28.89 Other specified disorders of kidney and ureter (principal); R93.5 Abnormal findings on diagnostic imaging of other abdominal regions, including retroperitoneum
CPT/HCPCS: 74183

== ENCOUNTER 2021-02-24 04:11 | Outpatient (CLI) | payer MEDICARE, SELFPAY ==
[2021-02-24 12:35] LABS: Calculated LDL 90 mg/dL (<100); Cholesterol 150 mg/dL (<200); HDL Cholesterol 39 mg/dL (40-60); Triglyceride 107 mg/dL (<150)
== END 2021-02-24 04:12 | disposition home or self-care (01) ==
LOC: LOS 04:12
PROVIDERS: PCP Nurse Practitioner Family; Visit Provider Nurse Practitioner Family
DX: I25.10 Atherosclerotic heart disease of native coronary artery without angina pectoris (principal)
CPT/HCPCS: 36415; 80061

== ENCOUNTER 2021-06-25 02:23 | Emergency (ER) | payer MEDICARE, SELFPAY ==
[2021-06-25 02:30] VITALS: BP 171/71; PULSE 73; RESP 18; TEMP 36.3; O2SAT 95
--- NOTE | 2021-06-25 02:43 | W.ED.GENAD ---
Discharge Plan Disposition Patient Disposition: HOME Condition: Good Discharge Details Clinical Impression: Flushing reaction Primary Care Provider: Aristides Warner ED Provider: Sebastian Marquez [place] Meds and New Rx's Prescriptions: Continued torsemide 20 mg tablet 20 mg PO DAILY Qty: 90 RF: 3 nitroglycerin 0.4 mg tablet, sublingual 0.4 mg Sublingual As directed MDD 3 tabs PRN (Reason: chest pain) Qty: 10 RF: 6 polymyxin B sulf-trimethoprim 10,000 unit- 1 mg/mL drops 1 drp ophthalmic (eye) QID Qty: 10 RF: 0 phenytoin sodium extended 100 mg capsule 500 mg PO DAILY Qty: 450 RF: 4 simvastatin 40 mg tablet 40 mg PO DAILY Qty: 90 RF: 4 metoprolol succinate 25 mg tablet extended release 24 hr 25 mg PO DAILY Qty: 90 RF: 4 Eliquis 5 mg tablet 5 mg PO BID Qty: 180 RF: 4 cholecalciferol (vitamin D3) 1,000 UNITS tablet 1,000 units PO DAILY RF: 0 acetaminophen 500 mg Tablet 500 mg PO PRN PRNRF: 0 lidocaine [Lidoderm] 1 PATCH patch 1 patch Topical Q24H Qty: 4 RF: 0 pantoprazole [Protonix] 40 mg tablet,delayed release (DR/EC) 40 mg PO .am Qty: 90 RF: 4 Discharge Instructions Additional Instructions: At this point in time no clear etiology for the flushed feeling you had tonight. EKG, laboratory studies, head CT are all unremarkable and reassuring. Follow-up with primary care next week if continued episodes. Return to ED for any neurologic changes, mental status changes, chest pain, difficulty breathing, severe headache, other concerns. Referrals: Aristides Warner, [employer]ARM MANAG[employer] PROFESSOR [Primary Care Provider] - Medical Decision Making Patient presenting with complaint of flushed feeling/dizziness that he did not describe as vertiginous or lightheadedness. Denies any headache or focal neurologic changes. Able to ambulate though he did state he felt off. He was a little concerned because he thinks he may have taken an extra dose of Eliquis. Denies any extra dose or change in dosing of phenytoin. Report right lower extremity edema is chronic and unchanged. Report having previous nystagmus from his phenytoin use. He has a nonfocal neurologic exam otherwise. EKG is unchanged from previous. Will check laboratory studies and head CT because on Eliquis but doubt bleed. Patient feels better with no intervention. Head CT negative for bleed or acute changes. Laboratory studies unremarkable. Normal white count. Normal hemoglobin. Chemistries unremarkable. Urine negative. Phenytoin therapeutic. Initial troponin normal. Patient observed with no changes and continued to feel well. Repeat EKG and troponin remain normal. Unclear etiology for patient flushing/dizzy sensation. Will discharge home to follow-up with primary care next week for reevaluation especially continued recurrent symptoms. Otherwise return to ED for any neurologic change, mental status change, syncope, chest pain, shortness of breath, other concerns. Medical Records Medical records reviewed: Yes I reviewed the patient's medical records. Lab Data Lab results reviewed: Yes I reviewed the patient's lab results. ECG Data Attestation: I personally reviewed and interpreted this ECG (s) as follows: Prior ECG tracings: available for review Interpretation: see EKG HPI General Mode of arrival: ambulatory. Date/Time Provider Initiated Documentation: 06/25/21 02:39. Limitations to Documentation: no limitations. Information obtained by: patient, RN notes reviewed and old records reviewed. HPI Narrative: Patient presents to ED with onset of flushed/heating feeling all over but mostly in the head region as well as dizziness which he does not describe as spinning or lightheadedness. He has never had these symptoms before. He is not sure if he took an extra dose of his Eliquis or not. He denies any extra dosage of his phenytoin and denies any change in dosing. He denies headache. He states he was able to ambulate but felt a little off. Denies any vision change, numbness, weakness, speech problem. Had URI type symptoms 2 to 3 weeks ago which have resolved. Denies fever, cough, shortness of breath, chest pain, syncope, vomiting, abdominal pain tonight. Does report a little bit of nausea earlier. Because he ihadnot had the sensation ever before he came in to be evaluated. Related Data Home Medications Medication Instructions Recorded Confirmed cholecalciferol (vitamin D3) 1,000 units PO DAILY 10/11/12 06/25/21 acetaminophen 500 mg PO PRN PRN 05/04/19 06/25/21 lidocaine [Lidoderm] 1 patch TOPICAL Q24H #4 patch 05/04/19 06/25/21 phenytoin sodium extended 100 mg 500 mg PO DAILY #450 tab-cap 06/25/20 06/25/21 capsule simvastatin 40 mg tablet 40 mg PO DAILY #90 tab-cap 07/12/20 06/25/21 metoprolol succinate 25 mg 25 mg PO DAILY #90 tab 08/26/20 06/25/21 tablet,extended release 24 hr pantoprazole [Protonix] 40 mg PO .am #90 tab 09/10/20 06/25/21 nitroglycerin 0.4 mg sublingual 0.4 mg SUBLINGUAL As directed PRN 09/22/20 06/25/21 tablet #10 tab MDD 3 tabs apixaban 5 mg tablet 5 mg PO BID #180 tab 02/02/21 06/25/21 polymyxin B sulfate 10,000 1 drp OPHTHALMIC (EYE) QID #10 ml 02/25/21 06/10/21 unit-trimethoprim 1 mg/mL eye drops torsemide 20 mg tablet 20 mg PO DAILY #90 tab 06/10/21 06/25/21 Previous Rx's Medication Instructions Recorded lidocaine [Lidoderm] 1 patch TOPICAL Q24H #4 patch 05/04/19 phenytoin sodium extended 100 mg 500 mg PO DAILY #450 tab-cap 06/25/20 capsule simvastatin 40 mg tablet 40 mg PO DAILY #90 tab-cap 07/12/20 metoprolol succinate 25 mg 25 mg PO DAILY #90 tab 08/26/20 tablet,extended release 24 hr pantoprazole [Protonix] 40 mg PO .am #90 tab 09/10/20 nitroglycerin 0.4 mg sublingual 0.4 mg SUBLINGUAL As directed PRN 09/22/20 tablet #10 tab MDD 3 tabs apixaban 5 mg tablet 5 mg PO BID #180 tab 02/02/21 polymyxin B sulfate 10,000 1 drp OPHTHALMIC (EYE) QID #10 ml 02/25/21 unit-trimethoprim 1 mg/mL eye drops torsemide 20 mg tablet 20 mg PO DAILY #90 tab 06/10/21 Allergies Allergy/AdvReac Type Severity Reaction Status Date / Time amoxicillin Allergy Unknown Verified 06/10/21 08:07 Sulfa (Sulfonamide Allergy Unknown Verified 06/10/21 08:07 Antibiotics) General Stated Complaint: GenMedical JERRICA: 3 Review of Systems Narrative: As documented in HPI otherwise negative as below. Const: no fever, chills, weakness Resp: no cough, SOB, pleuritic pain CV: no CP, diaphoresis, edema, syncope GI: no abdominal pain, vomiting, diarrhea Neuro: no headache, numbness, focal weakness, confusion PFSH All Active Problems (Updated 06/25/21 @ 06:45 by Sebastian Marquez MD) Flushing reaction (Acute) Anticoagulant long-term use (Acute) Renal mass (Acute) CPAP (continuous positive airway pressure) dependence (Acute) Hiatal hernia with GERD (Acute) Benign prostatic hyperplasia (Acute 05/07/13) Coronary artery disease (Acute 05/11/14) Diverticulosis (Acute 08/02/15) Edema (Acute) Varicose veins of lower extremity (Acute) Lymphedema of right lower extremity (Acute) Right shoulder pain (Acute) Medical History Prescott's palsy Cervical radiculopathy Family history of GI malignancy colon cancer/father Fracture of ankle History of tobacco use QUIT 1967 Hyperlipidemia Hypertension Impingement syndrome of left shoulder TIARA (obstructive sleep apnea) Pulmonary embolism Right leg DVT Seizures Onset in his late 20's, no seizures for 30 years Surgical History ankle repair Arthroscopy, Shoulder (~2005) 1 vascular History of esophagogastroduodenoscopy (EGD) (~09/10/20) History of intravascular stent placement History of orthopedic surgery Repair of inguinal hernia left x 3 Rotator Cuff Repair Status post arthroscopy of shoulder Status post inguinal hernia repair Status post rotator cuff repair Stent placement Cardiac stent placement in 2010 x1 Family History Mother , AGE 60 Heart disease Father , age 82 Heart disease Colon cancer Sister , AGE 60 Heart disease Sister No problems noted. Sister No problems noted. Brother , AGE 42 No problems noted. Brother No problems noted. Son No problems noted. Daughter No problems noted. Daughter No problems noted. Maternal Grandfather No problems noted. Paternal Grandfather No problems noted. Maternal Grandmother No problems noted. Paternal Grandmother No problems noted. 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 Pets and animals: No Sexually active: Yes What is your relationship status?: How often do you talk on the phone with friends or family?: three or more times per week How often do you get together with friends or relatives?: three or more times per week How often do you attend shinto or protestant services?: 1-3 times per year Do you belong to any clubs or organized social groups?: no Panel score (0-1 are the most socially isolated patients): 2 What type of physical activity do you participate in: walking Duration: > 90 minutes/day Frequency: daily Bruna/Orthodox: Latter-Day Special bruna needs: No Helmet use: No Drive intox or ride w/intox motor driver: No Do you feel safe at home: Yes Do you feel safe in your relationship?: Yes Victim of physical abuse: No Victim of emotional abuse: No Victim of sexual abuse: No Would you like helpful sources: No Exam Narrative Exam Narrative: Const: WDWN male in NAD. HEENT: NC/AT. Normal facial exam. Eyes: Normal conjunctiva and sclera. PERRL and EOMI. Three to four beat nystagmus with right gaze. Neck: Supple. Trachea midline. Lungs: Normal respiratory effort. Lungs are clear. Cor: RRR without murmur/gallop. Good radial pulses. GI: Soft. NT/ND. Neuro: A+O x 3. Normal speech, mentation. Cranial nerves II - XII grossly intact. No gross motor or sensory deficit. Normal FTN. Ext: No C/C. BLE edema R > L which is chronic and unchanged. Skin: Warm and dry without rash. Course Vital Signs Vital signs: Vital Signs Temperature 97.3 F L 06/25/21 02:30 Pulse 73 06/25/21 02:30 Respiratory Rate 18 06/25/21 02:30 Blood Pressure 171/71 H 06/25/21 02:30 Pulse Oximetry 95 06/25/21 02:30 Temperature 97.3 F L 06/25/21 02:30 Temperature Source Tympanic 06/25/21 02:30 Pulse 73 06/25/21 02:30 Respiratory Rate 18 06/25/21 02:30 Respiratory Effort 06/25/21 02:36 Respiratory Depth Normal 06/25/21 02:35 Respiratory Pattern Normal 06/25/21 02:35 Blood Pressure 171/71 H 06/25/21 02:30 Blood Pressure Position Supine 06/25/21 02:30 Pulse Oximetry 95 06/25/21 02:30 Oxygen Delivery Method Room Air 06/25/21 02:30 Oxygen Flow Rate 0 06/25/21 02:30 Pain Level 0 06/25/21 02:30
--- NOTE | 2021-06-25 02:45 | DI.CT_ITS ---
Exam(s) CT HEAD WO EXAM: CT HEAD WO CLINICAL HISTORY: dizzy. TECHNIQUE: Imaging Protocol: Axial computed tomography images with coronal and sagittal reformatted images were created and reviewed COMPARISON: No exams were available for comparison FINDINGS: Ventricles and Extra axial spaces: Normal in size and morphology for the patient's age. Hemorrhage: None. Cerebral parenchyma: No acute territorial infarct. Midline shift: None. Brainstem/Cerebellum: Normal. Calvarium: Normal. Visualized Paranasal sinuses/Mastoids: Clear. Soft Tissues: Unremarkable. IMPRESSION: No acute intracranial process. RADIATION DOSE DELIVERED: 721.22mGy.cm Total DLP DATA REPOSITORY: All CT scans at this facility are submitted to the National Radiology Data Registry (NRDR) Dose Index Registry (DIR) with the [employer] (ACR). RADIATION OPTIMIZATION: All CT scans at this facility use at least one of these dose optimization te chniques: automated exposure control; mA and/or kV adjustment per patient size (includes targeted exa ms where dose is matched to clinical indication); or iterative reconstruction.
--- NOTE | 2021-06-25 02:45 | RT.EKG_ITS ---
APPROVED REPORT Exam: Resting ECG Reason for Exam: dizzy Patient Location: E HR:66 bpm ECG Measurements Heart Rate 66 AXIS OK 175 P 71 QRSd 106 QRS 41 QT 402 T 70 QTc 423 Conclusion Sinus rhythm...normal P axis, V-rate 60- 99 Normal [place] I have reviewed and interpreted ECG and agree with software generated interpretation. There are no significant changes compared to prior EKG performed on 08/31/2020 at 09:43.
[2021-06-25 03:16] LABS: Bilirubin Negative (Negative); Blood Negative (Negative); Clarity Clear (Clear); Glucose Negative (Negative); Ketones Negative (Negative); Leukocyte Esterase Negative (Negative); Nitrite Negative (Negative); Urobilinogen 0.2 EU/dL (Up TO 0.2)
[2021-06-25 03:29] LABS: Abs Immature Grans 0.04 10^3/uL (0.0-0.06); Absolute Basophil Count 0.05 10^3/uL (0.0-0.2); Absolute Eosinophil Count 0.12 10^3/uL (0.0-0.7); Absolute Lymphocyte Count 1.21 10^3/uL (1.2-3.4); Absolute Monocyte Count 0.54 10^3/uL (0.1-0.8); Absolute Neutrophil Count 3.92 10^3/uL (1.2-6.7); Basophils % 0.9; HCT 41.1 % (40.0-50.0); HGB 13.7 g/dL (13.5-17.5); Immature Grans % 0.7; Lymphocytes % 20.6; MCH 30.7 pg (27.0-33.0); MCHC 33.3 % (32.0-36.0); MCV 92.2 fL (80-95); MPV 10.2 fL (8.0-11.0); Monocytes % 9.2; Neutrophils % 66.6; Nucleated RBC 0 %; Platelet Count 191 10^3/uL (130-400); RBC 4.46 10^6/uL (4.36-5.78); RDW-SD 41.1 fL; WBC 5.88 10^3/uL (4.4-10.8)
[2021-06-25 03:30] LABS: ALT 20 U/L (16-63); AST 20 U/L (15-37); Albumin 3.9 g/dL (3.4-5.0); Alkaline Phosphatase 166 U/L (46-116); Anion Gap 6.9 mmol/L (3-11); BUN 29 mg/dL (7-18); Bilirubin, Total 0.2 mg/dL (0.2-1.0); CO2 29.1 mmol/L (21.0-32.0); Calcium 8.3 mg/dL (8.5-10.1); Chloride 103 mmol/L (98-107); Glucose 113 mg/dL (74-106); Potassium 3.9 mmol/L (3.5-5.1); Sodium 139 mmol/L (136-145); Total Protein 7.2 g/dL (6.4-8.2)
[2021-06-25 03:31] LABS: Troponin I < 0.05 ng/mL (<0.06)
[2021-06-25 03:47] VITALS: BP 165/78; RESP 18; O2SAT 96
--- NOTE | 2021-06-25 04:50 | DI.VRAD_ITS ---
PROCEDURE INFORMATION: Exam: CT Head Without Contrast Exam date and time: 06/25/2021 3:01 AM Age: 75 years old Clinical indication: Other: Dizzy TECHNIQUE: Imaging protocol: Computed tomography of the head without contrast. COMPARISON: No relevant prior studies available. FINDINGS: Brain: Normal. No hemorrhage. Unremarkable white matter. No mass effect. Extra-axial space: No evidence of subdural hemorrhage. Cerebral ventricles: No ventriculomegaly. Paranasal sinuses: Visualized sinuses are unremarkable. No fluid levels. Mastoid air cells: Visualized mastoid air cells are well aerated. Vasculature: Carotid and vertebral arterial calcifications noted. Bones/joints: Unremarkable. No acute fracture. Soft tissues: Unremarkable. IMPRESSION: Negative for intracranial hemorrhage or other acute intracranial abnormality. Dictated and Authenticated by: Srinivas Herndon MD. Ordering:NILTON Cortes MD
[2021-06-25 05:41] VITALS: BP 157/75; PULSE 78; RESP 18; O2SAT 96
--- NOTE | 2021-06-25 06:00 | RT.EKG_ITS ---
APPROVED REPORT Exam: Resting ECG Reason for Exam: dizzy Patient Location: E HR:63 bpm ECG Measurements Heart Rate 63 AXIS DC 182 P 71 QRSd 99 QRS 43 QT 403 T 77 QTc 411 Conclusion Sinus rhythm...normal P axis, V-rate 60- 99 Normal [place] There are no significant changes compared to prior EKG performed on 06/25/2021 at 03:22.
[2021-06-25 06:08] LABS: Troponin I < 0.05 ng/mL (<0.06)
== END 2021-06-25 06:50 | disposition home or self-care (01) ==
PROVIDERS: Emergency Provider Emergency Medicine; PCP Nurse Practitioner Family
DX: R23.2 Flushing (principal); R42 Dizziness and giddiness
CPT/HCPCS: 80053; 93005; 99284; 70450; 80185; 81003; 83735; 84484; 85025; 93010; 99283

== ENCOUNTER 2022-08-30 01:53 | Outpatient (CLI) | payer OTHER, SELFPAY ==
[2022-08-30 09:38] LABS: Estimated GFR 78.49 (mL/min/1.73m2); Potassium 3.7 mmol/L (3.5-5.1)
== END 2022-08-30 01:54 | disposition home or self-care (01) ==
LOC: LBO 01:53
PROVIDERS: PCP Nurse Practitioner Family; Visit Provider Nurse Practitioner Family
DX: I10 Essential (primary) hypertension (principal); E78.5 Hyperlipidemia, unspecified
CPT/HCPCS: 36415; 82565; 84132

== ENCOUNTER 2022-10-18 15:09 | Outpatient (REF) | payer OTHER, SELFPAY ==
[2022-10-20 14:22] LABS: COVID-19 RT-PCR UVMMC Result Positive (Negative)
== END 2022-10-18 15:10 | disposition home or self-care (01) ==
LOC: LBN 15:09
PROVIDERS: PCP Nurse Practitioner Family; Visit Provider Nurse Practitioner Family
DX: U07.1 COVID-19 (principal)
CPT/HCPCS: U0003

== ENCOUNTER 2023-07-18 04:45 | Outpatient (CLI) | payer OTHER, SELFPAY ==
[2023-07-18 11:39] LABS: CREATININE 0.9 mg/dL (0.70-1.30); Calculated LDL 90 mg/dL (<100); Cholesterol 151 mg/dL (<200); Estimated GFR 88.51 (mL/min/1.73m2); HDL Cholesterol 40 mg/dL (40-60); Potassium 3.7 mmol/L (3.5-5.1); Triglyceride 108 mg/dL (<150)
== END 2023-07-18 04:46 | disposition home or self-care (01) ==
LOC: LOS 04:45
PROVIDERS: PCP Nurse Practitioner Family; Visit Provider Nurse Practitioner Family
DX: I10 Essential (primary) hypertension (principal); Z13.6 Encounter for screening for cardiovascular disorders
CPT/HCPCS: 36415; 80061; 82565; 84132

== ENCOUNTER → 2023-07-26 03:09 | Outpatient (CLI) | payer OTHER, SELFPAY ==
[2023-07-26] MEDS: Normal Saline - Diluent 50 ML VIAL 25 ML IJ (09:29)
[2023-07-26] MEDS: Gadoterate meglumine 20 ML VIAL IVP (09:29)
--- NOTE | 2023-07-26 13:59 | DI.MRI_ITS ---
Exam(s) MR ABDOMEN WO/W EXAM: MR ABDOMEN WO/W CLINICAL HISTORY: renal mass,n28.89 TECHNIQUE: Multiplanar multisequence MRI was performed with both pre and post contrast infused seque nces. Contrast injected sequences were performed following IV injection of 20 cc of Dotarem. COMPARISON: MR MR ABDOMEN WO/W from 10/15/2020 FINDINGS: VISUALIZED LUNG BASES: No pleural effusions evident. There is no ascites evident. LIVER: Previously described benign cysts are again noted. BILIARY: There is no obvious gallbladder pathology. The CBD is not dilated. PANCREAS: There is no evidence of pancreatic mass nor dilatation of the pancreatic duct. SPLEEN: Spleen is not enlarged and there are no intrasplenic lesions.Splenic and portal veins are pat ent ADRENALS: There are no significant adrenal masses. KIDNEYS: The well-defined mass in the anterior aspect of the upper pole of the left kidney presently measures 2.5 cm AP by 2.1 cm wide by 2.3 cm craniocaudal. This has slightly increased in size from A pril 2020. There are no new additional renal masses. No hydronephrosis. The left renal vein is pat ent. No significant new findings in the opposite-right kidney. ABDOMINAL AORTA: Not enlarged and there is no significant para-aortic adenopathy. ANTERIOR ABDOMINAL WALL/GI: There is no evidence of significant anterior abdominal wall hernia in the field of view of this study.Is no evidence of obvious bowel obstruction. OSSEOUS: There are no lytic osseous lesions in the field of view of this study. IMPRESSION: 1. Compared to the prior MRI scan of October 2020 the previously described solid nodule in the upper po le region of the left kidney has slightly further increased in size. Presently measures 25 mm AP by 21 mm wide by 23 mm craniocaudal. Previously measured 15 mm AP by 20 mm wide by 21 mm craniocaudal m ain consideration here is for oncocytoma versus slow growing renal cell neoplasm. 2. Relatively stable benign-appearing cysts in the liver. DATA REPOSITORY:
== END ==
PROVIDERS: PCP Nurse Practitioner Family; Visit Provider Nurse Practitioner Family
DX: N28.89 Other specified disorders of kidney and ureter (principal); Q44.6 Cystic disease of liver
CPT/HCPCS: 74183

== ENCOUNTER → 2023-11-07 04:31 | Outpatient (CLI) | payer MEDICARE, SELFPAY ==
--- NOTE | 2023-11-07 08:15 | DI.RAD_ITS ---
Exam(s) XR SHOULDER LT COMPLETE 2+V EXAM: XR SHOULDER LT COMPLETE 2+V CLINICAL HISTORY: Worsening pain lt shoulder, impingement lt shoulder, m75.42. TECHNIQUE: 2D digital imaging was performed of the left shoulder. Five images were obtained. AP, G rashey, Y-view and axillary views were obtained. COMPARISON: CR,XR XR SHOULDER LT COMPLETE 2+V from 05/04/2019 FINDINGS: BONES: No acute fracture is present. No bony destructive lesion is seen. JOINTS: No dislocation present. Mild degenerative changes are seen at the acromioclavicular joint. T he glenohumeral joint is unremarkable. SOFT TISSUE: The visualized lungs are clear. IMPRESSION: Mild degenerative changes of the shoulder. DATA REPOSITORY: RADIATION DOSE DELIVERED:
== END ==
PROVIDERS: PCP Nurse Practitioner Family; Visit Provider Nurse Practitioner Family
DX: M75.42 Impingement syndrome of left shoulder (principal)
CPT/HCPCS: 73030

== ENCOUNTER 2024-09-16 03:01 | Outpatient (CLI) | payer MEDICARE, SELFPAY ==
[2024-09-16 09:49] LABS: Anion Gap 7.2 mmol/L (3-11); BUN 26 mg/dL (7-18); CO2 29.8 mmol/L (21.0-32.0); Calcium 8.8 mg/dL (8.5-10.1); Calculated LDL 89 mg/dL (<100); Chloride 106 mmol/L (98-107); Cholesterol 162 mg/dL (<200); Estimated GFR 77.52 (mL/min/1.73m2); Glucose 102 mg/dL (74-106); HDL Cholesterol 44 mg/dL (>or=40); Sodium 143 mmol/L (136-145); Triglyceride 145 mg/dL (<150)
[2024-09-16 10:16] LABS: PHENYTOIN (DILANTIN) 24.7 ug/mL (10.0-20.0)
== END 2024-09-16 03:02 | disposition home or self-care (01) ==
PROVIDERS: PCP Nurse Practitioner Family; Visit Provider Nurse Practitioner Family
DX: G40.909 Epilepsy, unspecified, not intractable, without status epilepticus (principal); Z13.6 Encounter for screening for cardiovascular disorders; Z13.1 Encounter for screening for diabetes mellitus
CPT/HCPCS: 36415; 80048; 80061; 80185